=== PATIENT | male | born 1945 | race Caucasian/White ===

== ENCOUNTER → 2016-08-28 | Outpatient (CLI) | payer MEDICARE ==
[2016-08-28 11:35] LABS: Cholesterol 107 mg/dL (<200); HDL Cholesterol 41 mg/dL (40-60); Triglycerides 96 mg/dL (<150)
== END ==
LOC: LABWHC1 10:03
PROVIDERS: ATTEND Internal Medicine Cardiovascular Disease
DX: E78.00 Pure hypercholesterolemia, unspecified (principal); I48.0 Paroxysmal atrial fibrillation
CPT/HCPCS: 36415; 80061

== ENCOUNTER 2017-01-16 05:24 | Emergency (ER) | payer MEDICARE ==
[2017-01-16] MEDS ORDERED: MECLIZINE 12.5 MG TAB PO STA (05:50)
[2017-01-16] MEDS ORDERED: SODIUM CHLORIDE 0.9% 500 ML IV STA (05:50)
--- NOTE | 2017-01-16 05:53 | ED ---
Dizziness HPI - General Chief Complaint: Dizziness Stated Complaint: N/V, Vertigo Time Seen by Provider: 01/16/17 05:33 Source: patient Mode of arrival: EMS Limitations: no limitations - History of Present Illness MD Complaint: dizziness Onset/Timin -: hour(s) Timing: sudden onset, awoke with symptoms Description: "room spinning", nausea History of Same: No History of Trauma: No Severity: severe Improves With: remaining still Worsens With: movement - Related Data Home Medications Medication Instructions Recorded Confirmed Cholecalciferol [Vitamin D3] 2,000 unit PO DAILY@1200 11/08/13 12/11/13 Doxazosin [Cardura] 8 mg PO HS 11/08/13 12/11/13 Ezetimibe [Zetia] 10 mg PO DAILY 11/08/13 12/11/13 Famotidine [Pepcid] 20 mg PO BID 11/08/13 12/11/13 Probenecid [Benemid] 500 mg PO BID 11/08/13 12/11/13 Previous Rx's Medication Instructions Recorded Aspirin 325 mg PO DAILY #30 tab 11/09/13 Clopidogrel [Plavix] 75 mg PO DAILY #30 tab 11/09/13 Nitroglycerin Sl Tabs [Nitrostat] 0.4 mg SUBLINGUAL Q5M PRN #25 tab 11/09/13 Meclizine [Antivert] 25 mg PO TID PRN #20 tab 01/16/17 Allergies Allergy/AdvReac Type Severity Reaction Status Date / Time morphine AdvReac Nausea Verified 11/08/13 20:19 Review of Systems ROS Statement: Those systems with pertinent positive or pertinent negative responses have been documented in the HPI. ROS Other: All systems not noted in ROS Statement are negative. Constitutional: Denies: fever, chills, weakness Eyes: Denies: vision change ENT: Denies: ear pain, hearing loss Respiratory: Denies: cough, dyspnea Cardiovascular: Denies: chest pain, palpitations Gastrointestinal: Reports: nausea, vomiting. Denies: abdominal pain Genitourinary: Denies: dysuria, hematuria Musculoskeletal: Denies: back pain Skin: Denies: rash Neurological: Reports: as per HPI, vertigo. Denies: headache, weakness, numbness Past Medical History Past Medical History: Coronary Artery Disease (CAD), Chest Pain / Angina, GERD/ Reflux, Hyperlipidemia, Prostate Disorder Additional Past Medical History / Comment(s): BRADYCARDIA, GOUT, GALLSTONES, diverticulitis, stent placed October 2013 History of Any Multi-Drug Resistant Organisms: None Reported Past Surgical History: Heart Catheterization With Stent, Tonsillectomy Additional Past Surgical History / Comment(s): BOWEL RESECTION D/T DIVERTICULITIS,STENT TO RCA Past Anesthesia/Blood Transfusion Reactions: No Reported Reaction Date of Last Stent Placement:: 11-08-13 Past Psychological History: No Psychological Hx Reported Smoking Status: Former smoker Past Alcohol Use History: Occasional Past Drug Use History: None Reported General Exam Limitations: no limitations General appearance: alert, in no apparent distress Head exam: Present: atraumatic, normocephalic, normal inspection Eye exam: Present: normal appearance. Absent: scleral icterus, conjunctival injection ENT exam: Present: normal oropharynx, mucous membranes moist Neck exam: Present: normal inspection, full ROM Respiratory exam: Present: normal lung sounds bilaterally. Absent: respiratory distress, wheezes, rales, rhonchi, stridor Cardiovascular Exam: Present: regular rate, normal rhythm, normal heart sounds. Absent: systolic murmur, diastolic murmur, rubs, gallop GI/Abdominal exam: Present: soft. Absent: distended, tenderness, guarding, rebound, mass Extremities exam: Present: normal inspection, normal capillary refill. Absent: pedal edema, calf tenderness Back exam: Present: normal inspection. Absent: CVA tenderness (R), CVA tenderness (L) Neurological exam: Present: alert, oriented X3. Absent: motor sensory deficit Skin exam: Present: warm, dry, intact, normal color. Absent: rash Course Vital Signs 01/16/17 01/16/17 01/16/17 05:28 06:12 06:55 Temperature 96.8 F L Pulse Rate 60 64 60 Respiratory 18 94 H 18 Rate Blood Pressure 125/74 128/72 125/71 O2 Sat by Pulse 94 L 94 L 98 Oximetry 01/16/17 07:57 Temperature Pulse Rate 59 L Respiratory 18 Rate Blood Pressure 124/73 O2 Sat by Pulse 95 Oximetry Medical Decision Making - Lab Data Result diagrams: 01/16/17 05:44 01/16/17 05:44 Lab Results 01/16/17 01/16/17 01/16/17 Range/Units 05:44 05:44 05:44 WBC 8.8 (3.8-10.6) k/uL RBC 4.72 (4.30-5.90) m/uL Hgb 14.4 (13.0-17.5) gm/dL Hct 41.6 (39.0-53.0) % MCV 88.0 (80.0-100.0) fL MCH 30.5 (25.0-35.0) pg MCHC 34.7 (31.0-37.0) g/dL RDW 12.9 (11.5-15.5) % Plt Count 173 (150-450) k/uL Neutrophils % 80 % Lymphocytes % 10 % Monocytes % 7 % Eosinophils % 2 % Basophils % 0 % Neutrophils # 7.0 (1.3-7.7) k/uL Lymphocytes # 0.9 L (1.0-4.8) k/uL Monocytes # 0.6 (0-1.0) k/uL Eosinophils # 0.2 (0-0.7) k/uL Basophils # 0.0 (0-0.2) k/uL Sodium 140 (137-145) mmol/L Potassium 4.2 (3.5-5.1) mmol/L Chloride 107 (98-107) mmol/L Carbon Dioxide 27 (22-30) mmol/L Anion Gap 6 mmol/L BUN 25 H (9-20) mg/dL Creatinine 1.06 (0.66-1.25) mg/dL Est GFR (MDRD) Af Amer >60 (>60 ml/min/1.73 sqM) Est GFR (MDRD) Non-Af >60 (>60 ml/min/1.73 sqM) Glucose 130 H (74-99) mg/dL Plasma Lactic Acid Curtis (0.7-2.0) mmol/L Calcium 8.4 (8.4-10.2) mg/dL Total Bilirubin 0.3 (0.2-1.3) mg/dL AST 27 (17-59) U/L ALT 38 (21-72) U/L Alkaline Phosphatase 59 (38-126) U/L Troponin I <0.012 (0.000-0.034) ng/mL Total Protein 5.9 L (6.3-8.2) g/dL Albumin 3.5 (3.5-5.0) g/dL Urine Color Urine Appearance (Clear) Urine pH (5.0-8.0) Ur Specific [place] (1.001-1.035) Urine Protein (Negative) Urine Glucose (UA) (Negative) Urine Ketones (Negative) Urine Blood (Negative) Urine Nitrite (Negative) Urine Bilirubin (Negative) Urine Urobilinogen (<2.0) mg/dL Ur Leukocyte Esterase (Negative) 01/16/17 01/16/17 Range/Units 05:55 07:38 WBC (3.8-10.6) k/uL RBC (4.30-5.90) m/uL Hgb (13.0-17.5) gm/dL Hct (39.0-53.0) % MCV (80.0-100.0) fL MCH (25.0-35.0) pg MCHC (31.0-37.0) g/dL RDW (11.5-15.5) % Plt Count (150-450) k/uL Neutrophils % % Lymphocytes % % Monocytes % % Eosinophils % % Basophils % % Neutrophils # (1.3-7.7) k/uL Lymphocytes # (1.0-4.8) k/uL Monocytes # (0-1.0) k/uL Eosinophils # (0-0.7) k/uL Basophils # (0-0.2) k/uL Sodium (137-145) mmol/L Potassium (3.5-5.1) mmol/L Chloride (98-107) mmol/L Carbon Dioxide (22-30) mmol/L Anion Gap mmol/L BUN (9-20) mg/dL Creatinine (0.66-1.25) mg/dL Est GFR (MDRD) Af Amer (>60 ml/min/1.73 sqM) Est GFR (MDRD) Non-Af (>60 ml/min/1.73 sqM) Glucose (74-99) mg/dL Plasma Lactic Acid Curtis 1.4 (0.7-2.0) mmol/L Calcium (8.4-10.2) mg/dL Total Bilirubin (0.2-1.3) mg/dL AST (17-59) U/L ALT (21-72) U/L Alkaline Phosphatase (38-126) U/L Troponin I (0.000-0.034) ng/mL Total Protein (6.3-8.2) g/dL Albumin (3.5-5.0) g/dL Urine Color Yellow Urine Appearance Clear (Clear) Urine pH 5.0 (5.0-8.0) Ur Specific [place] 1.015 (1.001-1.035) Urine Protein Negative (Negative) Urine Glucose (UA) Negative (Negative) Urine Ketones Negative (Negative) Urine Blood Negative (Negative) Urine Nitrite Negative (Negative) Urine Bilirubin Negative (Negative) Urine Urobilinogen <2.0 (<2.0) mg/dL Ur Leukocyte Esterase Negative (Negative) Disposition Clinical Impression: Vertigo Disposition: HOME SELF-CARE Condition: Good Instructions: Vertigo (ED) Prescriptions: Meclizine [Antivert] 25 mg PO TID PRN #20 tab PRN Reason: Vertigo Referrals: Johnathan Sierra MD [Primary Care Provider] - 1-2 days
[2017-01-16 05:59] LABS: Basophils % (A) 0 %; CH 30.1; CHCM 34.4; Eosinophils # (A) 0.2 k/uL (0-0.7); Eosinophils % (A) 2 %; HCT 41.6 % (39.0-53.0); HGB 14.4 gm/dL (13.0-17.5); Luc # (Auto) 0.12; Luc % (Auto) 1; Lymphocytes # (A) 0.9 k/uL (1.0-4.8); Lymphocytes % (A) 10 %; MCH 30.5 pg (25.0-35.0); MCHC 34.7 g/dL (31.0-37.0); Mean Platelet Volume 8.4; Monocytes # (A) 0.6 k/uL (0-1.0); Monocytes % (A) 7 %; Neutrophils % (A) 80 %; RBC 4.72 m/uL (4.30-5.90); RDW 12.9 % (11.5-15.5); WBC 8.8 k/uL (3.8-10.6); WBC (Perox) 9.21
[2017-01-16 06:11] LABS: ALT 38 U/L (21-72); AST 27 U/L (17-59); Alkaline Phosphatase 59 U/L (38-126); Anion Gap 6 mmol/L; Blood Urea Nitrogen 25 mg/dL (9-20); Calcium 8.4 mg/dL (8.4-10.2); Carbon Dioxide 27 mmol/L (22-30); Chloride 107 mmol/L (98-107); Glucose 130 mg/dL (74-99); Non-African American GFR(MDRD) >60 (>60 ml/min/1.73 sqM); Potassium 4.2 mmol/L (3.5-5.1); Sodium 140 mmol/L (137-145); Total Bilirubin 0.3 mg/dL (0.2-1.3); Total Protein 5.9 g/dL (6.3-8.2)
[2017-01-16 06:56] VITALS: RESP 18
[2017-01-16 07:51] LABS: Appearance,Urine Clear (Clear); Bilirubin,Urine Negative (Negative); Glucose,Urine (UA) Negative (Negative); Ketones,Urine Negative (Negative); Leukocyte Esterase,Urine Negative (Negative); Nitrite,Urine Negative (Negative); Protein,Urine Negative (Negative); Specific Gravity,Urine 1.015 (1.001-1.035); UA Billing (MACRO vs. MICRO) CHEM; Urobilinogen,Urine <2.0 mg/dL (<2.0)
[2017-01-16 08:29] VITALS: BP 122/88; PULSE 60; TEMP 97.5
== END 2017-01-16 08:29 | disposition home or self-care (01) ==
LOC: EC 05:24
DX: R42 Dizziness and giddiness (principal); R11.0 Nausea; K21.9 Gastro-esophageal reflux disease without esophagitis; E78.5 Hyperlipidemia, unspecified; I25.10 Atherosclerotic heart disease of native coronary artery without angina pectoris; M10.9 Gout, unspecified; Z95.5 Presence of coronary angioplasty implant and graft; Z79.899 Other long term (current) drug therapy; Z87.891 Personal history of nicotine dependence
CPT/HCPCS: 36415; 80053; 81003; 83605; 84484; 85025; 93005; 99284

== ENCOUNTER → 2018-01-19 | Outpatient (CLI) | payer MEDICARE ==
--- NOTE | 2018-01-19 15:57 | CT ---
EXAMINATION TYPE: CT abdomen w con DATE OF EXAM: 01/19/2018 COMPARISON: None HISTORY: Right upper quadrant abdominal pain x few months. CT DLP: 738 mGycm, Automated Exposure Control for Dose Reduction was Utilized. CONTRAST: CT scan of the abdomen is performed with oral and with IV Contrast, patient injected with 100ml mL of Isovue M300. FINDINGS: LUNG BASES: Dependent atelectasis is seen in both bases. There is respiratory motion artifact degrada tion identified. There is partial visualization of right-sided pacemaker leads. LIVER/GB: Cholecystectomy clips are noted. There is no suspicious extrahepatic or intrahepatic biliar y dilatation. PANCREAS: No significant abnormality is seen. SPLEEN: There is 1.1 cm splenule in the inferior splenic hilum axial image 26 ADRENALS: No significant abnormality is seen. KIDNEYS: No significant abnormality is seen. BOWEL: The oral contrast does not reach colonic level making evaluation slightly suboptimal. There ar e sutures from right-sided partial colectomy seen. There is no suspicious small or large bowel dilata tion. LYMPH NODES: No greater than 1cm abdominal lymph nodes are appreciated. OSSEOUS STRUCTURES: There is advanced disc space narrowing with vacuum disc phenomenon and moderate a nterior spurring L4-L5 level. There is mild to moderate disc space narrowing with vacuum disc phenome non at L5-S1 level. There is facet arthropathy in the lower lumbar spine. OTHER: There is mild calcified plaque of the infrarenal abdominal aorta. IMPRESSION: No significant acute finding is seen to account for patient's clinical symptoms of right upper quadrant pain.
== END | disposition home or self-care (01) ==
LOC: RADCTMAIN 14:45
DX: R10.11 Right upper quadrant pain (principal)
CPT/HCPCS: 82565; 84520; 74160; 36415; Q9967

== ENCOUNTER 2018-06-22 09:25 | Day surgery (SDC) | payer MEDICARE ==
[2018-06-21 11:21] VITALS: BMI 25.7
[2018-06-22 09:42] VITALS: TEMP 97.5
[2018-06-22] MEDS ORDERED: LACTATED RINGERS 1,000 ML IV ONE (09:54)
[2018-06-22] MEDS ORDERED: LIDOCAINE 1% 20 ML VIAL (10MG/ML) FOR IV START INTRADERMA ONE (09:54)
[2018-06-22] MEDS ORDERED: LABETALOL SYRINGE 5 MG/ML IVP ONE (10:19)
[2018-06-22] MEDS ORDERED: PROPOFOL 10 MG/ML 20 ML VIAL IV ONE (11:04)
[2018-06-22] MEDS ORDERED: LIDOCAINE 1% INJ 10MG/ML (20 ML MDV) ONE (11:04)
--- NOTE | 2018-06-22 11:39 | P.PCN ---
Date of Procedure: 06/22/18 Procedure(s) Performed: Procedures: 1. Esophagogastroduodenoscopy and biopsy. 2. Total colonoscopy. Preoperative diagnosis: Anemia and positive cologuard test. Postoperative diagnosis: 1. Small sliding hiatal hernia with no obvious esophagitis or complicated reflux disease. 2. Mild antral gastritis. 3. Multiple biopsies obtained from the duodenum, antrum and esophagus. 4. Colonoscopy within normal limits. Preparation: HalfLytely prep. Sedation: Was provided by anesthesia. Brief clinical history: The patient is a 73-year-old male who is scheduled for this evaluation for the above reason. He has history of complicated diverticular disease and required segmental resection in the early 1999. He had a normal colonoscopy in September 2015 and an upper endoscopy around that time showed LA grade A reflux esophagitis and mild antral gastritis and a small GE junction polyp that showed eosinophilic esophagitis on biopsy. This evaluation is to assess for a possible source of bleeding. Procedure: With the patient on his left lateral decubitus position and after informed consent and adequate sedation, I passed the Olympus-GIF H1 90 video upper endoscope through the cricopharyngeus down the esophagus. The esophagus appeared normal and there was a small sliding hiatal hernia but no obvious esophagitis or complicated reflux disease. GE junction was around 42-43 cm from the incisors. The endoscope was then passed into the stomach which was insufflated with air and inspected in detail including the retroflex view in the cardia. There was some mottling and erythema in the antrum but no ulcers or erosions. Pyloric channel, duodenal bulb, post bulbar area and descending duodenum appeared within normal limits. I obtained biopsies from the duodenum, antrum and esophagus then the endoscope was withdrawn and I proceeded with the colonoscopy. Perianal area did not show any fissures or fistulas. There were no masses felt on digital rectal examination. The Olympus CFH 190L video colonoscope was then inserted in the rectum in the usual fashion and advanced to the cecum. There was a rare small diverticular orifice seen in the sigmoid and the mucosa appeared healthy. No polyps or tumors were seen. No potential sources of bleeding. I retroflexed the endoscope in the rectum before the endoscope was withdrawn. The patient tolerated the procedure well. Plan: The patient was reassured. Will await biopsy results. Consideration can be given for a small bowel capsule endoscopy depending on his course and if he continues to have anemia and evidence of GI blood loss. He will follow up with you as planned.
[2018-06-22 12:16] VITALS: BP 106/66; PULSE 65; RESP 18
== END 2018-06-22 12:53 | disposition home or self-care (01) ==
LOC: ORWHC2ENDO 09:25
DX: K20.0 Eosinophilic esophagitis (principal); K44.9 Diaphragmatic hernia without obstruction or gangrene; K21.9 Gastro-esophageal reflux disease without esophagitis; K57.30 Diverticulosis of large intestine without perforation or abscess without bleeding; K29.50 Unspecified chronic gastritis without bleeding; Z90.49 Acquired absence of other specified parts of digestive tract; D64.9 Anemia, unspecified; I25.10 Atherosclerotic heart disease of native coronary artery without angina pectoris; I10 Essential (primary) hypertension; M10.9 Gout, unspecified; Z95.0 Presence of cardiac pacemaker; Z87.891 Personal history of nicotine dependence; Z95.5 Presence of coronary angioplasty implant and graft; Z79.01 Long term (current) use of anticoagulants; Z79.82 Long term (current) use of aspirin; Z79.899 Other long term (current) drug therapy; Z88.5 Allergy status to narcotic agent
CPT/HCPCS: 88305; 45378; 43239; J2001; J2704

== ENCOUNTER 2018-07-23 10:23 | Observation (INO) | payer MEDICARE ==
[2018-07-23] MEDS ORDERED: HYDROmorphone 0.5 MG/0.5 ML SYRINGE IVP STA (10:38)
[2018-07-23] MEDS ORDERED: KETOROLAC 30 MG/ML 1 ML VIAL IVP STA (10:38)
[2018-07-23] MEDS ORDERED: NITROGLYCERIN OINT 1 INCH/GM PACKET TOPICAL STA (10:58)
[2018-07-23] MEDS ORDERED: ASPIRIN 81 MG PO STA (10:58)
--- NOTE | 2018-07-23 11:00 | ED ---
General Adult HPI - General Chief complaint: Chest Pain Stated complaint: CHEST PAIN Time Seen by Provider: 07/23/18 10:25 Source: patient, RN notes reviewed Mode of arrival: ambulatory Limitations: no limitations - History of Present Illness Initial comments: This is a 73-year-old male who presents emergency department with past medical history significant for a coronary stent high cholesterol and diabetes. Patient comes in today because he experienced a sharp chest pain across his chest that lasts 1 second last evening however since then he's had chest discomfort across his whole chest lasting quite a bit longer it does radiated up to his jaw. Patient denies any diaphoresis. Patient denies any nausea. Patient denies any palpitations. Patient denies shortness of breath or difficulty breathing. Patient denies abdominal pain patient denies vomiting or diarrhea. Patient denies any recent fevers chills or cough. - Related Data Home Medications Medication Instructions Recorded Confirmed Cholecalciferol [Vitamin D3] 2,000 unit PO DAILY 11/08/13 07/23/18 Ezetimibe [Zetia] 10 mg PO DAILY 11/08/13 07/23/18 Amiodarone HCl [Pacerone] 200 mg PO DAILY 06/21/18 07/23/18 Aspirin 81 mg PO DAILY 06/21/18 07/23/18 Rivaroxaban [Xarelto] 20 mg PO DAILY 06/21/18 07/23/18 Alirocumab [Praluent Pen] 75 mg SQ DIRECTED 07/23/18 07/23/18 Mupirocin [Mupirocin 2%] 1 applic TOPICAL TID 07/23/18 07/23/18 Probenecid [Benemid] 500 mg PO BID 07/23/18 07/23/18 Tadalafil [Cialis] 5 mg PO ONCE 07/23/18 07/23/18 rOPINIRole HCL 0.5 mg PO HS 07/23/18 07/23/18 Previous Rx's Medication Instructions Recorded Nitroglycerin Sl Tabs [Nitrostat] 0.4 mg SUBLINGUAL Q5M PRN #25 tab 11/09/13 Allergies Allergy/AdvReac Type Severity Reaction Status Date / Time morphine AdvReac Nausea,room Verified 07/23/18 12:36 spins Review of Systems ROS Statement: Those systems with pertinent positive or pertinent negative responses have been documented in the HPI. ROS Other: All systems not noted in ROS Statement are negative. Past Medical History Past Medical History: Coronary Artery Disease (CAD), Chest Pain / Angina, GERD/ Reflux, Hyperlipidemia, Prostate Disorder Additional Past Medical History / Comment(s): positive cologuard test, BRADYCARDIA, GOUT, GALLSTONES, diverticulitis,steroids May 2018,prostatitis History of Any Multi-Drug Resistant Organisms: None Reported Past Surgical History: Bowel Resection, Heart Catheterization With Stent, Pacemaker, Tonsillectomy Additional Past Surgical History / Comment(s): BOWEL RESECTION D/T DIVERTICULITIS,STENT TO RCA Past Anesthesia/Blood Transfusion Reactions: No Reported Reaction Date of Last Stent Placement:: 11-08-13 Type of Cardiac Device: Permanent Pacemaker Device Placement Date:: 2013? Past Psychological History: No Psychological Hx Reported Smoking Status: Former smoker Past Alcohol Use History: None Reported, Daily Past Drug Use History: None Reported - Past Family History Father Additional Family Medical History / Comment(s): at age 89 General Exam - General Exam Comments Initial Comments: GENERAL: Patient is well-developed and well-nourished. Patient is nontoxic and well- hydrated and is in mild distress. ENT: Neck is soft and supple. No significant lymphadenopathy is noted. Oropharynx is clear. Moist mucous membranes. Neck has full range of motion without eliciting any pain. EYES: The sclera were anicteric and conjunctiva were pink and moist. Extraocular movements were intact and pupils were equal round and reactive to light. Eyelids were unremarkable. PULMONARY: Unlabored respirations. Good breath sounds bilaterally. No audible rales rhonchi or wheezing was noted. CARDIOVASCULAR: There is a regular rate and rhythm without any murmurs gallops or rubs. ABDOMEN: Soft and nontender with normal bowel sounds. No palpable organomegaly was noted. There is no palpable pulsatile mass. SKIN: Skin is clear with no lesions or rashes and otherwise unremarkable. NEUROLOGIC: Patient is alert and oriented x3. Cranial nerves II through XII are grossly intact. Motor and sensory are also intact. Normal speech, volume and content. Symmetrical smile. MUSCULOSKELETAL: Normal extremities with adequate strength and full range of motion. No lower extremity swelling or edema. No calf tenderness. LYMPHATICS: No significant lymphadenopathy is noted PSYCHIATRIC: Normal psychiatric evaluation. Limitations: no limitations Course Vital Signs 07/23/18 10:26 Temperature 97.4 F L Pulse Rate 85 Respiratory 20 Rate Blood Pressure 119/79 O2 Sat by Pulse 97 Oximetry Medical Decision Making - Medical Decision Making EKG shows a paced rhythm at 69 bpm OR interval is 288 QRS is 90 QT interval 410 QTC is 439. Chest shows no acute normalities. Patient's hemoglobin was down but patient stated that he is no numbness had a colonoscopy 2 weeks ago and they did not find anything. Patient does not want a rectal exam at this time. I spoke with [facility] and he agreed to admit the patient admitted the patient I consult cardiology. I did not start any heparin on the patient because the patient stated that he did have blood in his stool recently. - Lab Data Result diagrams: 07/23/18 10:59 07/23/18 10:59 Lab Results 07/23/18 07/23/18 07/23/18 Range/Units 10:59 10:59 10:59 WBC 4.5 (3.8-10.6) k/uL RBC 4.58 (4.30-5.90) m/uL Hgb 9.6 L (13.0-17.5) gm/dL Hct 32.4 L (39.0-53.0) % MCV 70.8 L (80.0-100.0) fL MCH 20.9 L (25.0-35.0) pg MCHC 29.5 L (31.0-37.0) g/dL RDW 17.6 H (11.5-15.5) % Plt Count 221 (150-450) k/uL Neutrophils % 58 % Lymphocytes % 23 % Monocytes % 10 % Eosinophils % 5 % Basophils % 1 % Neutrophils # 2.6 (1.3-7.7) k/uL Lymphocytes # 1.0 (1.0-4.8) k/uL Monocytes # 0.4 (0-1.0) k/uL Eosinophils # 0.2 (0-0.7) k/uL Basophils # 0.0 (0-0.2) k/uL Hypochromasia Marked Poikilocytosis Slight Anisocytosis Slight Microcytosis Marked PT 10.6 (9.0-12.0) sec INR 1.0 (<1.2) APTT 26.0 (22.0-30.0) sec Sodium 138 (137-145) mmol/L Potassium 4.7 (3.5-5.1) mmol/L Chloride 107 (98-107) mmol/L Carbon Dioxide 28 (22-30) mmol/L Anion Gap 3 mmol/L BUN 17 (9-20) mg/dL Creatinine 1.17 (0.66-1.25) mg/dL Est GFR (CKD-EPI)AfAm 72 (>60 ml/min/1.73 sqM) Est GFR (CKD-EPI)NonAf 62 (>60 ml/min/1.73 sqM) Glucose 111 H (74-99) mg/dL Calcium 9.0 (8.4-10.2) mg/dL Magnesium 2.2 (1.6-2.3) mg/dL Total Bilirubin 0.4 (0.2-1.3) mg/dL AST 38 (17-59) U/L ALT 50 (21-72) U/L Alkaline Phosphatase 61 (38-126) U/L Troponin I (0.000-0.034) ng/mL Total Protein 6.4 (6.3-8.2) g/dL Albumin 3.8 (3.5-5.0) g/dL 07/23/18 Range/Units 10:59 WBC (3.8-10.6) k/uL RBC (4.30-5.90) m/uL Hgb (13.0-17.5) gm/dL Hct (39.0-53.0) % MCV (80.0-100.0) fL MCH (25.0-35.0) pg MCHC (31.0-37.0) g/dL RDW (11.5-15.5) % Plt Count (150-450) k/uL Neutrophils % % Lymphocytes % % Monocytes % % Eosinophils % % Basophils % % Neutrophils # (1.3-7.7) k/uL Lymphocytes # (1.0-4.8) k/uL Monocytes # (0-1.0) k/uL Eosinophils # (0-0.7) k/uL Basophils # (0-0.2) k/uL Hypochromasia Poikilocytosis Anisocytosis Microcytosis PT (9.0-12.0) sec INR (<1.2) APTT (22.0-30.0) sec Sodium (137-145) mmol/L Potassium (3.5-5.1) mmol/L Chloride (98-107) mmol/L Carbon Dioxide (22-30) mmol/L Anion Gap mmol/L BUN (9-20) mg/dL Creatinine (0.66-1.25) mg/dL Est GFR (CKD-EPI)AfAm (>60 ml/min/1.73 sqM) Est GFR (CKD-EPI)NonAf (>60 ml/min/1.73 sqM) Glucose (74-99) mg/dL Calcium (8.4-10.2) mg/dL Magnesium (1.6-2.3) mg/dL Total Bilirubin (0.2-1.3) mg/dL AST (17-59) U/L ALT (21-72) U/L Alkaline Phosphatase (38-126) U/L Troponin I <0.012 (0.000-0.034) ng/mL Total Protein (6.3-8.2) g/dL Albumin (3.5-5.0) g/dL Disposition Clinical Impression: Chest pain, Anemia Disposition: ADMITTED IP TO THIS [facility] Referrals: Johnathan Sierra MD [Primary Care Provider] - 1-2 days Time of Disposition: 12:58
[2018-07-23 11:10] LABS: Anisocytosis Slight; Basophils % (A) 1 %; Eosinophils # (A) 0.2 k/uL (0-0.7); Eosinophils % (A) 5 %; HCT 32.4 % (39.0-53.0); HGB 9.6 gm/dL (13.0-17.5); Hypochromasia Marked; Lymphocytes % (A) 23 %; MCH 20.9 pg (25.0-35.0); MCHC 29.5 g/dL (31.0-37.0); MCV 70.8 fL (80.0-100.0); Mean Platelet Volume 7.4; Microcytosis Marked; Monocytes # (A) 0.4 k/uL (0-1.0); Monocytes % (A) 10 %; Neutrophils # (A) 2.6 k/uL (1.3-7.7); Neutrophils % (A) 58 %; Platelet Count 221 k/uL (150-450); Poikilocytosis Slight; RBC 4.58 m/uL (4.30-5.90); RDW 17.6 % (11.5-15.5); WBC 4.5 k/uL (3.8-10.6)
[2018-07-23 11:20] LABS: Albumin 3.8 g/dL (3.5-5.0); Magnesium 2.2 mg/dL (1.6-2.3); Potassium 4.7 mmol/L (3.5-5.1); Total Bilirubin 0.4 mg/dL (0.2-1.3); Total Protein 6.4 g/dL (6.3-8.2)
[2018-07-23 11:30] LABS: Prothrombin Time 10.6 sec (9.0-12.0)
--- NOTE | 2018-07-23 11:43 | XR ---
EXAMINATION TYPE: XR chest 2V DATE OF EXAM: 07/23/2018 COMPARISON: 12/11/2013 INDICATION: Chest pain TECHNIQUE: Frontal and lateral views of the chest are obtained. FINDINGS: The heart size is normal. The pulmonary vasculature is normal. The lungs are clear. Electronic device overlies left chest. IMPRESSION: 1. No acute pulmonary process.
[2018-07-23] MEDS ORDERED: NITROGLYCERIN SL TABS 0.4 MG TAB SUBLINGUAL PRN (12:58)
[2018-07-23 14:35] VITALS: BMI 26.0
[2018-07-23 16:45] LABS: Glucose,Whole Blood 152 mg/dL (75-99)
[2018-07-23] MEDS: NITROGLYCERIN OINT 1 INCH/GM PACKET TOPICAL SCH (16:53)
[2018-07-23] MEDS: INSULIN ASPART (NovoLOG) 100 UNIT/ML VIAL SQ SCH ×2 (16:57→20:08)
[2018-07-23] MEDS ORDERED: TEMAZEPAM 15 MG CAP PO PRN (17:20)
[2018-07-23] MEDS ORDERED: ACETAMINOPHEN TAB 500 MG TAB PO PRN (17:20)
[2018-07-23] MEDS ORDERED: ALPRAZolam 0.25 MG TAB PO PRN (17:20)
[2018-07-23] MEDS ORDERED: ALIROCUMAB 75 MG SQ SCH (17:30)
[2018-07-23 20:05] LABS: Glucose,Whole Blood 113 mg/dL (75-99)
[2018-07-23] MEDS: PROBENECID 500 MG TAB PO SCH (21:50)
[2018-07-23] MEDS: MUPIROCIN 2% OINT 22 GM TUBE TOPICAL SCH (22:57)
[2018-07-24] MEDS: NITROGLYCERIN OINT 1 INCH/GM PACKET TOPICAL SCH ×2 (00:05→06:05)
[2018-07-24 00:46] LABS: Hemoglobin A1C 6.4 % (4.0-6.0)
--- NOTE | 2018-07-24 04:40 | HP ---
HISTORY AND PHYSICAL DATE OF SERVICE: 07/23/2018 CHIEF COMPLAINT: Chest pain. HISTORY OF PRESENT ILLNESS: This 73-year-old gentleman with a past medical history of multiple medical problems including history of CAD, history of GERD, hyperlipidemia, history of DJD, history of prostate disorder, history of anemia, history of stool OB positive, hiatal hernia, history of CAD and stent being followed by Dr. 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 Patient woke up last night with chest pain which is in the anterior part of the chest, rather sharp in character. This morning also patient had aching type of pain and some pain radiating up the joint. Patient came to [facility] and was admitted for further evaluation and treatment. There was no nausea, any sweating, palpitation, headache. loss of conscious. Patient's pain is reported as cramps. The patient had recently had echocardiogram elsewhere according to the patient. There is no history of any fever, rigor, chills. PAST MEDICAL HISTORY: History of CAD, history of GERD, hyperlipidemia, history of DJD, prostate disorder and anemia. MEDICATIONS ARE: 1. Requip 0.5 mg q.h.s. 2. Xarelto 20 mg daily. 3. 500 mg p.o. b.i.d. 4. Nitrostat 0.4. 5. Vitamin D3 2000. 6. Aspirin 81 mg. 7. Alirocumab 75 mg p.o. 9. Zetia 10 mg. 10.Cialis 5 mg. 11.Pacerone 200 mg daily. ALLERGIES: MORPHINE. FAMILY HISTORY: History of lung cancer in the family. SOCIAL HISTORY: History of occasional alcohol. Previous history of smoking. REVIEW OF SYSTEMS: ENT No history of diminished hearing or vision. CARDIOVASCULAR As mentioned earlier. RESPIRATORY As mentioned earlier. GI No nausea, vomiting, or diarrhea. No dysuria. NERVOUS No numbness or weakness. ALLERGY/IMMUNOLOGY No asthma or hayfever. MUSCULOSKELETAL As mentioned earlier. HEMATOLOGY/ONCOLOGY Negative. ENDOCRINE No history of diabetes or hypothyroidism. CONSTITUTIONAL As mentioned earlier. PSYCH As mentioned earlier. PHYSICAL EXAMINATION: Alert, oriented x3. Pulse 64, blood pressure 130/60, respiration temperature 97.7, pulse ox 97% on room air. HEENT Conjunctivae normal. NECK No jugular venous distention. CARDIAC S1, S2 muffled. RESPIRATORY Diminished breath sounds at the bases. No rhonchi, no crackles. ABDOMEN Soft, nontender. No mass palpable. LEGS No edema. No swelling. NERVOUS SYSTEM Higher functions as mentioned earlier. Moves all four limbs. LYMPHATICS No lymph node in the neck or axilla. SKIN No rash. JOINT ( ) active. LABS: WBC 4, hemoglobin 9.6 and MCV 70.8. Accu-Cheks 152. ASSESSMENT: 1. Chest pain, possible unstable angina. 2. Anemia, microcytic, rule out gastrointestinal bleed. 3. History of coronary artery disease and stent. 4. History of chest pain. 5. History of gastroesophageal reflux disease. 6. Hyperlipidemia. 7. History of degenerative joint disease. 8. History of prostate disorder. 9. History of stool positive guaiac positive blood. 10.History of gastritis. 11.History of hiatal hernia. 12.History of gout. 13.History of degenerative joint disease. 14.Remote history of nicotine dependence. RECOMMENDATIONS AND DISCUSSION: In this 73-year-old gentleman who presented with multiple medical issues, we will monitor the patient closely, continue the current management and symptomatic treatment. I recommend cardiology consult, rule out myocardial infarction. Resume the home medications. Repeat labs in the morning. We will follow the patient closely and further recommendations to follow. MMODL / IJN: [id number] / EFRA
[2018-07-24 05:59] LABS: Anisocytosis Slight; Basophils % (A) 1 %; Eosinophils # (A) 0.2 k/uL (0-0.7); Eosinophils % (A) 5 %; HCT 31.7 % (39.0-53.0); HGB 9.1 gm/dL (13.0-17.5); Hypochromasia Marked; Lymphocytes # (A) 1.2 k/uL (1.0-4.8); Lymphocytes % (A) 25 %; MCH 20.7 pg (25.0-35.0); MCHC 28.6 g/dL (31.0-37.0); MCV 72.3 fL (80.0-100.0); Mean Platelet Volume 9.1; Microcytosis Moderate; Monocytes # (A) 0.4 k/uL (0-1.0); Monocytes % (A) 9 %; Neutrophils # (A) 2.6 k/uL (1.3-7.7); Neutrophils % (A) 56 %; Platelet Count 201 k/uL (150-450); RBC 4.38 m/uL (4.30-5.90); RDW 17.8 % (11.5-15.5); WBC 4.7 k/uL (3.8-10.6)
[2018-07-24 06:10] LABS: Calcium 8.6 mg/dL (8.4-10.2); Potassium 4.9 mmol/L (3.5-5.1)
[2018-07-24 06:56] LABS: Glucose,Whole Blood 115 mg/dL (75-99)
[2018-07-24] MEDS: INSULIN ASPART (NovoLOG) 100 UNIT/ML VIAL SQ SCH (07:06)
[2018-07-24] MEDS ORDERED: PANTOPRAZOLE 40 MG TABLET PO SCH (07:30)
[2018-07-24 07:35] VITALS: BP 102/52; PULSE 62; RESP 18; TEMP 97.6
[2018-07-24] MEDS ORDERED: RIVAROXABAN 20 MG TAB PO SCH (09:00)
[2018-07-24] MEDS ORDERED: ASPIRIN 325 MG TAB PO SCH (09:00)
[2018-07-24] MEDS ORDERED: EZETIMIBE 10 MG TAB PO SCH (09:00)
[2018-07-24] MEDS ORDERED: AMIODARONE 200 MG TAB PO SCH (09:00)
[2018-07-24] MEDS ORDERED: CHOLECALCIFEROL 1,000 UNIT TAB PO SCH (09:00)
[2018-07-24] MEDS: MUPIROCIN 2% OINT 22 GM TUBE TOPICAL SCH (10:09)
[2018-07-24] MEDS: PROBENECID 500 MG TAB PO SCH (10:14)
--- NOTE | 2018-07-24 12:53 | CONS ---
CONSULTATION Mr. Juares this is a also well is a 73-year-old gentleman who is seen for the cardiac evaluations. Patient's medical records reviewed. This patient has a known history of coronary artery disease with a prior history of a stent to the distal right coronary artery. 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 Patient is being followed by custodial services manager in [place]. Patient came to the hospital with the sharp pain across the chest which lasted for initially a few seconds. Patient had a similar pain the night before. He did not had any nausea, vomiting, or shortness of breath. Patient denies any history of exertional chest discomfort. Patient recently had a colonoscopy done about 2 weeks ago. No source of bleeding was detected. HOME MEDICATIONS: Include vitamin D3, Zetia, Pacerone 200 mg daily, baby aspirin once a day, Xarelto 20 mg daily, Praluent, , Cialis and Requip. REVIEW OF THE SYSTEM: Otherwise unremarkable. PAST MEDICAL HISTORY: Includes test, gout, gallstones, diverticulitis and prostatitis and prior bowel resection with diverticulitis. SOCIAL HISTORY: Patient is a former smoker. PHYSICAL EXAMINATION: At present reveals a 73-year-old gentleman who does not appear to be in any acute distress. Patient's blood pressure is 130/80 mmHg. HEENT examination is negative. Neck is supple. There is no increase in jugular venous pressure. Both the carotid pulses are felt, there is no bruit. Chest is symmetrical. Heart, the PMI is not felt. First and second heart sounds are normal. Lungs are clinically clear to auscultation and percussion. Abdomen was soft. Liver and spleen are not enlarged. Bowel sounds are heard. Extremities, peripheral pulses are 2+. Patient's electrolytes are normal. Troponins are normal. EKG does not show any acute ischemic changes. FINAL IMPRESSION: Chest pain suggestive of atypical angina. Patient's EKGs and cardiac enzymes are normal. In view of the patient, we will recommend to obtain echocardiogram. Patient's aspirin can probably be discontinued and only continue on Xarelto and patient is advised to follow up with his custodial services manager and follow up with a stress test as outpatient. MMODL / IJN: [id number] /
--- NOTE | 2018-07-24 14:08 | DS ---
DISCHARGE SUMMARY DATE OF SERVICE: 07/24/2018 FINAL DIAGNOSES: 1. Chest pain, possible unstable angina. 2. Anemia, microcytic, rule out gastrointestinal bleed. 3. History of coronary artery disease, stent. 4. History of chest pain. 5. Gastroesophageal reflux disease. 6. Hyperlipidemia. 7. History of degenerative joint disease. 8. History of prostate disorder. 9. History of stool positive guaiac. 10.History of gastritis. 11.History of hiatal hernia. 12.History of gout. 13.History of degenerative joint disease. 14.Remote history of nicotine dependence. DISCHARGE DISPOSITION: The patient left the hospital AGAINST MEDICAL ADVICE. HISTORY OF PRESENT ILLNESS: This is a 73-year-old gentleman with a past medical history of multiple medical problems, was admitted with chest pain. Cardiology was evaluating the patient, but: however, the patient is not willing to stay and left the hospital AGAINST MEDICAL ADVICE. Prognosis extremely guarded. Please refer to Cardiology notes and staff notes for further details. MMODL / IJN: [id number] /
== END 2018-07-24 11:39 | disposition left against medical advice (07) ==
LOC: EC 10:23 → 1SOBS 12:58
PROVIDERS: ADMIT Hospitalist; ATTEND Hospitalist
DX: R07.89 Other chest pain (principal); D50.9 Iron deficiency anemia, unspecified; I25.10 Atherosclerotic heart disease of native coronary artery without angina pectoris; Z95.5 Presence of coronary angioplasty implant and graft; K21.9 Gastro-esophageal reflux disease without esophagitis; E78.5 Hyperlipidemia, unspecified; M19.90 Unspecified osteoarthritis, unspecified site; N42.9 Disorder of prostate, unspecified; Z87.19 Personal history of other diseases of the digestive system; K44.9 Diaphragmatic hernia without obstruction or gangrene; M10.9 Gout, unspecified; Z87.891 Personal history of nicotine dependence; Z53.21 Procedure and treatment not carried out due to patient leaving prior to being seen by health care provider; Z79.899 Other long term (current) drug therapy; Z79.82 Long term (current) use of aspirin; Z79.01 Long term (current) use of anticoagulants; Z88.5 Allergy status to narcotic agent; Z80.1 Family history of malignant neoplasm of trachea, bronchus and lung; I49.5 Sick sinus syndrome; Z95.0 Presence of cardiac pacemaker
CPT/HCPCS: 99285; 36415; 93005; 80061; 80053; 80048; 83735; 84484; 85025 ×2; 85610; 85730; 83036; 71046; G0378 ×2

== ENCOUNTER → 2019-11-15 | Day surgery (SDC) | payer MEDICARE ==
[2019-11-11 13:57] VITALS: BMI 25.0
[~2019-11-15] MED LIST: SIMETHICONE 40 MG/0.6 ML DROPS 2,000 MG/30 ML BOTTLE PO ONE
== END ==
LOC: ORWHC2ENDO 06:57
PROVIDERS: ATTEND Internal Medicine
DX: D50.9 Iron deficiency anemia, unspecified (principal); K92.2 Gastrointestinal hemorrhage, unspecified
CPT/HCPCS: 91110

== ENCOUNTER 2023-02-15 07:44 | Observation (INO) | payer MEDICARE ==
[2023-02-15 08:03] LABS: Anisocytosis Slight; Basophils % (A) 0 %; Eosinophils # (A) 0.3 k/uL (0-0.7); Eosinophils % (A) 5 %; HCT 31.8 % (39.0-53.0); Hypochromasia Slight; Lymphocytes # (A) 0.8 k/uL (1.0-4.8); Lymphocytes % (A) 13 %; MCH 26.6 pg (25.0-35.0); MCHC 31.5 g/dL (31.0-37.0); MCV 84.4 fL (80.0-100.0); Mean Platelet Volume 8.2; Monocytes # (A) 0.6 k/uL (0-1.0); Monocytes % (A) 10 %; Neutrophils # (A) 4.2 k/uL (1.3-7.7); Neutrophils % (A) 70 %; Platelet Count 166 k/uL (150-450); RBC 3.77 m/uL (4.30-5.90); RDW 16.9 % (11.5-15.5)
[2023-02-15 08:13] LABS: INR 1.3 (<1.2); Prothrombin Time 13.1 sec (9.0-12.0)
[2023-02-15 08:27] LABS: ALT 54 U/L (4-49); AST 98 U/L (17-59); African American GFR (CKD) >90 (>60 ml/min/1.73 sqM); Albumin 3.1 g/dL (3.5-5.0); Alkaline Phosphatase 128 U/L (38-126); Anion Gap 2 mmol/L; Blood Urea Nitrogen 26 mg/dL (9-20); Calcium 8.6 mg/dL (8.4-10.2); Carbon Dioxide 27 mmol/L (22-30); Chloride 107 mmol/L (98-107); Glucose 190 mg/dL (74-99); Non-African American GFR(CKD) 78 (>60 ml/min/1.73 sqM); Sodium 136 mmol/L (137-145); Total Bilirubin 0.4 mg/dL (0.2-1.3)
--- NOTE | 2023-02-15 08:28 | ED ---
General Adult HPI - General Chief complaint: Chest Pain Stated complaint: Chest Pain Time Seen by Provider: 02/15/23 07:53 Source: EMS Mode of arrival: EMS Limitations: no limitations - History of Present Illness Initial comments: Dictation was produced using [employer] dictation software. please excuse any grammatical, word or spelling errors. Chief Complaint: 77-year-old male with pacemaker and history of coronary disease presents to the ER for chest pain History of Present Illness: Patient 77-year-old male he has past medical history of coronary artery disease, pacemaker and A. fib. Presents to the ER for chest pain. Patient was at home when he started to have sharp chest pain that rated to his right jaw. This history of coronary artery disease status post coronary artery stent placements. Patient also has history of pacemaker those placed at [place] several years ago. Patient states the pain as sharp and worse with deep inspiration. EMS was called and EMS was worrisome that patient had a run of ventricular tachycardia. Patient took his own aspirin. He is given 2 nitro with maybe some improvement of his symptoms. The ROS documented in this emergency department record has been reviewed and confirmed by me. Those systems with pertinent positive or negative responses have been documented in the HPI. All other systems are other negative and/or noncontributory. - Related Data Home Medications Medication Instructions Recorded Confirmed Cholecalciferol [Vitamin D3 (25 2,000 unit PO DAILY 11/08/13 11/11/19 Mcg = 1000 Iu)] Ezetimibe [Zetia] 10 mg PO DAILY 11/08/13 11/11/19 Amiodarone HCl [Pacerone] 200 mg PO DAILY 06/21/18 11/11/19 Aspirin 81 mg PO DAILY 06/21/18 11/11/19 Rivaroxaban [Xarelto] 20 mg PO DAILY 06/21/18 11/11/19 Alirocumab [Praluent Pen] 75 mg SQ Q14D 07/23/18 11/11/19 Probenecid [Benemid] 500 mg PO BID 07/23/18 11/11/19 rOPINIRole HCL [Requip] 0.5 mg PO HS 07/23/18 11/11/19 tadalafiL [Cialis] 5 mg PO ONCE PRN 07/23/18 11/11/19 Ciprofloxacin HCl [Cipro] 500 mg PO Q12HR 11/11/19 11/11/19 Previous Rx's Medication Instructions Recorded Nitroglycerin Sl Tabs [Nitrostat] 0.4 mg SUBLINGUAL Q5M PRN #25 tab 11/09/13 Allergies Allergy/AdvReac Type Severity Reaction Status Date / Time morphine AdvReac Nausea,room Verified 02/15/23 07:53 spins Review of Systems ROS Statement: Those systems with pertinent positive or pertinent negative responses have been documented in the HPI. ROS Other: All systems not noted in ROS Statement are negative. Past Medical History Past Medical History: Atrial Fibrillation, Coronary Artery Disease (CAD), Chest Pain / Angina, GERD/Reflux, Hyperlipidemia, Osteoarthritis (OA), Prostate Disorder Additional Past Medical History / Comment(s): Anemia-recent positive Cologuard test and +stool OB-had EGD and colonoscopy which showed gastritis/hiatal hernia and a normal colon, past diverticulitis, NIDDM-diet controlled, bradycardia with pacemaker, BPH, chronic proctatitis,on antibiotics currently for that, gout, History of Any Multi-Drug Resistant Organisms: None Reported Past Surgical History: Bowel Resection, Heart Catheterization With Stent, Pacemaker, Tonsillectomy Additional Past Surgical History / Comment(s): EGDs, colonoscopies with last time for both being 06/22/18, BOWEL RESECTION D/T DIVERTICULITIS,STENT TO RCA Past Anesthesia/Blood Transfusion Reactions: No Reported Reaction Date of Last Stent Placement:: 11-08-13 Type of Cardiac Device: Permanent Pacemaker Device Placement Date:: 2013 Past Psychological History: No Psychological Hx Reported Smoking Status: Former smoker Past Alcohol Use History: Daily Past Drug Use History: None Reported - Past Family History Father Family Medical History: Cancer Additional Family Medical History / Comment(s): Father at age 89. He had lung issues and lung cancer. Mother Family Medical History: Myocardial Infarction (MA) Additional Family Medical History / Comment(s): Mother had a MA in her 60s. She lived to be 89yrs old. General Exam - General Exam Comments Initial Comments: PHYSICAL EXAM: General Impression: Alert and oriented x3, not in acute distress HEENT: Normocephalic atraumatic, extra-ocular movements intact, pupils equal and reactive to light bilaterally, mucous membranes moist. Cardiovascular: Heart regular rate and rhythm Chest: Able to complete full sentences, no retractions, no tachypnea Abdomen: abdomen soft, non-tender, non-distended, no organomegaly Musculoskeletal: Pulses present and equal in all extremities, no peripheral edema Motor: no focal deficits noted Neurological: CN II-XII grossly intact, no focal motor or sensory deficits noted Skin: Intact with no visualized rashes Psych: Normal affect and mood Limitations: no limitations Course Vital Signs 02/15/23 02/15/23 02/15/23 07:46 08:00 09:00 Temperature 97.8 F Pulse Rate 70 61 60 Respiratory 16 16 16 Rate Blood Pressure 117/78 121/69 111/68 O2 Sat by Pulse 95 96 99 Oximetry - Reevaluation(s) Reevaluation #1: 02/15/23 08:27 Patient Accepted and trauma bay number to. Patient seen immediately upon arrival. Vital signs are stable. Patient is well-appearing. Magnet was placed over pacemaker showing the patient has underlying dual atrial ventricular paced rhythm. EKG Findings - EKG Comments: EKG Findings:: My EKG interpretation: Ventricular rate 70, atrial paced rhythm,. Interval to 56, QRS 99, QTC 429. No CT prolongation, no QTC prolongation, no ST or T-wave changes noted. EKG compared to over 2018 showing no changes. Overall, this EKG is unremarkable Medical Decision Making - Medical Decision Making Was pt. sent in by a medical professional or institution ([facility], CHAIN MAKER, urgent care, hospital, or fdc...) When possible be specific @ -No Did you speak to anyone other than the patient for history (EMS, parent, family, police, friend...)? What history was obtained from this source @ -No Did you review nursing and triage notes (agree or disagree)? Why? @ -I reviewed and agree with nursing and triage notes Were old charts reviewed (outside hosp., previous admission, EMS record, old EK G, old radiological studies, urgent care reports/EKG's, fdc records)? Report findings @ -No old charts were reviewed Differential Diagnosis (chest pain, altered mental status, abdominal pain women, abdominal pain men, vaginal bleeding, musculoskeletal, weakness, fever, dyspnea, syncope, headache, dizziness, GI bleed, back pain, seizure, CVA, palpatations, mental health)? @ -Differential Chest Pain: Stable Angina, Unstable Angina, STEMI, NSTEMI Aortic Dissection, Pneumothorax, Musculoskeletal, Esophageal Spasm GERD, Cholecystitis, Pancreatitis, Zoster, this is not meant to be an all-inclusive list. EKG interpreted by me (3pts min.). @ -See above X-rays interpreted by me (1pt min.). @ -Chest x-ray is unremarkable for acute processes CT interpreted by me (1pt min.). @ -None done U/S interpreted by me (1pt. min.). @ -None done What testing was considered but not performed or refused? (CT, X-rays, U/S, labs)? Why? @ -None What meds were considered but not given or refused? Why? @ -None Did you discuss the management of the patient with other professionals (professionals i.e. , PA, CHAIN MAKER, lab, RT, psych nurse, social work msw, pv design engineer, teacher, public records officer, case loader operator)? Give summary @ -Patient case discussed with hospitalist for admission Was smoking cessation discussed for >3mins.? @ -No Was critical care preformed (if so, how long)? @ -No Were there social determinants of health that impacted care today? How? (Homelessness, low income, unemployed, alcoholism, drug addiction, transportation, low edu. Level, literacy, decrease access to med. care, longterm, rehab)? @ -No Was there de-escalation of care discussed even if they declined (Discuss DNR or withdrawal of care, Hospice)? DNR status @ -No What co-morbidities impacted this encounter? (DM, HTN, Smoking, COPD, CAD, Cancer, CVA, ARF, Chemo, Hep., AIDS, mental health diagnosis, sleep apnea, morbid obesity)? @ -None Was patient admitted / discharged? Hospital course, mention meds given and route, prescriptions, significant lab abnormalities, going to OR and other pertinent info. @ -77-year-old male with atypical chest pain typical features. Patient is asymptomatic at the bedside. Vital signs are stable. EKG is unremarkable. Labs are within acceptable limits. Anemia of 10.0 which is around his baseline. Troponin is negative. Patient reevaluated at bedside for a upon the within stable medical condition. Patient has no active chest pain at the bedside. Undiagnosed new problem with uncertain prognosis? @ -No Drug Therapy requiring intensive monitoring for toxicity (Heparin, Nitro, Insulin, Cardizem)? @ -No Were any procedures done? @ -No Diagnosis/symptom? Acute, or Chronic, or Acute on Chronic? Uncomplicated (without systemic symptoms) or Complicated (systemic symptoms)? @ -Chest pain Side effects of treatment? @ -No Exacerbation, Progression, or Severe Exacerbation? @ -No Poses a threat to life or bodily function? How? (Chest pain, USA, MA, pneumonia, PE, COPD, DKA, ARF, appy, cholecystitis, CVA, Diverticulitis, Homicidal, Suicidal, threat to staff... and all critical care pts) @ -yes - Lab Data Result diagrams: 02/15/23 07:56 02/15/23 07:56 Lab Results 02/15/23 02/15/23 02/15/23 Range/Units 07:56 07:56 07:56 WBC 6.0 (3.8-10.6) k/uL RBC 3.77 L (4.30-5.90) m/uL Hgb 10.0 L (13.0-17.5) gm/dL Hct 31.8 L (39.0-53.0) % MCV 84.4 (80.0-100.0) fL MCH 26.6 (25.0-35.0) pg MCHC 31.5 (31.0-37.0) g/dL RDW 16.9 H (11.5-15.5) % Plt Count 166 (150-450) k/uL MPV 8.2 Neutrophils % 70 % Lymphocytes % 13 % Monocytes % 10 % Eosinophils % 5 % Basophils % 0 % Neutrophils # 4.2 (1.3-7.7) k/uL Lymphocytes # 0.8 L (1.0-4.8) k/uL Monocytes # 0.6 (0-1.0) k/uL Eosinophils # 0.3 (0-0.7) k/uL Basophils # 0.0 (0-0.2) k/uL Hypochromasia Slight Anisocytosis Slight PT 13.1 H (9.0-12.0) sec INR 1.3 H (<1.2) APTT 33.0 H (22.0-30.0) sec Sodium 136 L (137-145) mmol/L Potassium 5.0 (3.5-5.1) mmol/L Chloride 107 (98-107) mmol/L Carbon Dioxide 27 (22-30) mmol/L Anion Gap 2 mmol/L BUN 26 H (9-20) mg/dL Creatinine 0.95 (0.66-1.25) mg/dL Est GFR (CKD-EPI)AfAm >90 (>60 ml/min/1.73 sqM) Est GFR (CKD-EPI)NonAf 78 (>60 ml/min/1.73 sqM) Glucose 190 H (74-99) mg/dL Plasma Lactic Acid Curtis (0.7-2.0) mmol/L Calcium 8.6 (8.4-10.2) mg/dL Magnesium 2.0 (1.6-2.3) mg/dL Total Bilirubin 0.4 (0.2-1.3) mg/dL AST 98 H (17-59) U/L ALT 54 H (4-49) U/L Alkaline Phosphatase 128 H (38-126) U/L Troponin I (0.000-0.034) ng/mL Total Protein 6.0 L (6.3-8.2) g/dL Albumin 3.1 L (3.5-5.0) g/dL 02/15/23 02/15/23 Range/Units 07:56 07:56 WBC (3.8-10.6) k/uL RBC (4.30-5.90) m/uL Hgb (13.0-17.5) gm/dL Hct (39.0-53.0) % MCV (80.0-100.0) fL MCH (25.0-35.0) pg MCHC (31.0-37.0) g/dL RDW (11.5-15.5) % Plt Count (150-450) k/uL MPV Neutrophils % % Lymphocytes % % Monocytes % % Eosinophils % % Basophils % % Neutrophils # (1.3-7.7) k/uL Lymphocytes # (1.0-4.8) k/uL Monocytes # (0-1.0) k/uL Eosinophils # (0-0.7) k/uL Basophils # (0-0.2) k/uL Hypochromasia Anisocytosis PT (9.0-12.0) sec INR (<1.2) APTT (22.0-30.0) sec Sodium (137-145) mmol/L Potassium (3.5-5.1) mmol/L Chloride (98-107) mmol/L Carbon Dioxide (22-30) mmol/L Anion Gap mmol/L BUN (9-20) mg/dL Creatinine (0.66-1.25) mg/dL Est GFR (CKD-EPI)AfAm (>60 ml/min/1.73 sqM) Est GFR (CKD-EPI)NonAf (>60 ml/min/1.73 sqM) Glucose (74-99) mg/dL Plasma Lactic Acid Curtis 1.0 (0.7-2.0) mmol/L Calcium (8.4-10.2) mg/dL Magnesium (1.6-2.3) mg/dL Total Bilirubin (0.2-1.3) mg/dL AST (17-59) U/L ALT (4-49) U/L Alkaline Phosphatase (38-126) U/L Troponin I <0.012 (0.000-0.034) ng/mL Total Protein (6.3-8.2) g/dL Albumin (3.5-5.0) g/dL Disposition Clinical Impression: Chest pain Disposition: ADMITTED IP TO THIS HOSP Condition: Fair Referrals: Slick Krishnan MD [Primary Care Provider] - 1-2 days Decision Time: 10:00
--- NOTE | 2023-02-15 09:04 | XR ---
EXAMINATION TYPE: XR chest 2V DATE OF EXAM: 02/15/2023 COMPARISON: 07/23/2018 HISTORY: Shortness of breath TECHNIQUE: Frontal and lateral views of the chest are obtained. FINDINGS: Scattered senescent parenchymal changes noted. Hyperinflation compatible with COPD. No evidence for infiltrate. No evidence for atelectasis. Heart size is stable. Mediastinal structures are stable and grossly unremarkable. No evidence for hilar prominence. Degenerative changes dorsal spine. IMPRESSION: 1. No evidence for acute pulmonary disease.
[2023-02-15] MEDS ORDERED: NITROGLYCERIN SL TABS 0.4 MG TAB SUBLINGUAL PRN ×2 (10:59→12:16)
--- NOTE | 2023-02-15 11:57 | P.HPIM ---
History of Present Illness H&P Date: 02/15/23 Chief Complaint: Chest Pain History of Presenting Illness: Patient is a very pleasant 77-year-old male with a past medical history of CAD status post stenting and permanent pacemaker placement, paroxysmal atrial fibrillation on anticoagulation with Xarelto, hypertension, hyperlipidemia, prostate cancer with previous diagnosis of adenocarcinoma of prostate with chronic prostatitis on orgovyx and flomax and restless leg syndrome. He presented to the emergency department with a chief complaint of chest pain. Patient reported while lying in bed he had sudden onset pain midsternal chest /epigastric region radiating upwards into his back and right lower jaw. Patient describes this pain as squeezing in nature and reports was accompanied by nausea and shortness of breath. He denies having any headache, lightheadedness, dizzi ness, palpitations, cough or congestion, vomiting, or experiencing any numbness/tingling/weakness/swelling in his extremities. Patient reports because of his history, he immediately took 4 baby aspirin at home and called EMS for transport to the hospital. Per ER documentation EMS provided patient with 2 sublingual nitroglycerin in which patient reports did result in improvement of his pain. Patient underwent full evaluation in the emergency department. Vital signs upon arrival blood pressure 117/78, heart rate 70, respiratory rate 16, temp 97.8F, SpO2 of 95% on room air. Labs completed and reviewed. CBC showing normocytic anemia with hemoglobin of 10.0. Coagulation profile showing elevated PT of 13.1, INR 1.3, and PTT of 33.0. BMP showing mild prerenal azotemia with BUN of 26 otherwise normal renal function with creatinine of 0.95 and GFR greater of 78. Liver profile showing transaminitis with AST of 98, ALT of 54, alkaline phosphatase of 128. Troponin was negative at less than 0.012. Initial EKG completed at 7:45 AM showing an atrial paced rhythm at 70 bpm and repeat EKG completed at 7:49 AM showing a ventricular paced rhythm at 84 bpm. Chest x-ray completed, lungs appear clear radiology report stating negative for acute cardiopulmonary process. Patient reported taking 4 baby aspirins prior to arrival and received 2 nitro via EMS in which she reported resulted in mild improvement of his symptoms. Discussed patient's history, chief complaint, laboratory analysis, and imaging results in detail with the ED physician. Patient to be admitted to cardiac observation unit with telemetry under our services with consultation to cardiology. Pt reports he follows with water reuse program manager Dr. Frankie Jenkins out of [facility]. Review of systems: Pertinent positives and negatives as discussed in HPI, a complete review of systems was performed and all other systems are negative. Physical exam: Vital signs reviewed and stable. General: Nontoxic, no distress and appears stated age. Derm: Skin warm and dry, normal coloration for ethnicity. Head: Atraumatic, normocephalic and symmetric. Eyes: EOMs intact, no lid lag, and anicteric sclera Mouth: no lip lesions, mucus membranes moist Cardiovascular: regular rate and rhythm with normal S1S2, systolic murmur, posi tive posterior tibial pulses bilaterally, and cap refill < 2 seconds. Pacemaker Left anterior chest Lungs: Respirations even, regular, and unlabored on room air. Lungs CTA bilaterally, no rhonchi, no rales, no wheezing, and no accessory muscle usage. Abdominal: soft, tenderness upon palpation to epigastric region. No guarding, no appreciable organomegaly Ext: ROM intact. No gross muscle atrophy, no edema, no contractures Neuro: Speech clear, face symmetrical and CN II-XII grossly intact with no noted focal neuro deficits Psych: Alert and oriented to person, place, time, and situation. Appropriate and pleasant affect. Assessment and Plan of Care: Atypical Chest/Epigastric pain History of CAD status post stenting and permanent pacemaker placement. Paroxysmal atrial fibrillation Hypertension Hyperlipidemia Transaminitis -Cardiology consult, appreciate further recommendations -Telemetry monitoring -Trend troponins -Order placed for stat lipase -Cardiac diet -Continue cardiac medication regimen with aspirin 81 mg daily, amiodarone 200 mg nightly, bisoprolol 2.5 mg nightly, Zetia 10 mg nightly, and Xarelto 20 mg daily with dinner. -Obtain pacemaker interrogation -Discussed elevated liver enzymes with patient and history of alcohol use. Patient does report drinking no more than 1 alcoholic beverage daily. Patient r eports sometimes he will drink one emily beer with dinner or occasionally a glass of Chardonnay at night if he is having difficulty sleeping. He denies any history of excessive alcohol use or abuse. No history of transaminitis in the past. Data reviewed: Vital signs upon arrival blood pressure 117/78, heart rate 70, respiratory rate 16, temp 97.8F, SpO2 of 95% on room air. Labs completed and reviewed. CBC showing normocytic anemia with hemoglobin of 10.0. Coagulation profile showing elevated PT of 13.1, INR 1.3, and PTT of 33.0. BMP showing mild prerenal azotemia with BUN of 26 otherwise normal renal function with creatinine of 0.95 and GFR greater of 78. Liver profile showing transaminitis with AST of 98, ALT of 54, alkaline phosphatase of 128. Troponin was negative at less than 0.012. Imaging reviewed: Initial EKG completed at 7:45 AM showing an atrial paced rhythm at 70 bpm and repeat EKG completed at 7:49 AM showing a ventricular paced rhythm at 84 bpm. Chest x-ray completed, lungs appear clear radiology report stating negative for acute cardiopulmonary process. Discussed patient's history, chief complaint, laboratory analysis, and imaging results in detail with the ED physician. Patient to be admitted to cardiac observation unit with telemetry under our services with consultation to cardiology. The patient is admitted with an anticipated less than 2 midnight stay for evaluation of chest/epigastric pain CODE STATUS: Full code DVT prophylaxis: Xarelto Discussed with: Patient, ED physician and RN Anticipated discharge date: Anticipate 24-[address]: Home Patient was seen independently by Nurse Practitioner. This document was prepared using [employer] dictation software. Please allow for errors in plate embosser while rare they do occur. Past Medical History Past Medical History: Atrial Fibrillation, Coronary Artery Disease (CAD), Chest Pain / Angina, GERD/Reflux, Hyperlipidemia, Osteoarthritis (OA), Prostate Disorder Additional Past Medical History / Comment(s): Anemia-recent positive Cologuard test and +stool OB-had EGD and colonoscopy which showed gastritis/hiatal hernia and a normal colon, past diverticulitis, NIDDM-diet controlled, bradycardia with pacemaker, BPH, chronic proctatitis,on antibiotics currently for that, gout, History of Any Multi-Drug Resistant Organisms: None Reported Past Surgical History: Bowel Resection, Heart Catheterization With Stent, Pacemaker, Tonsillectomy Additional Past Surgical History / Comment(s): EGDs, colonoscopies with last time for both being 06/22/18, BOWEL RESECTION D/T DIVERTICULITIS,STENT TO RCA Past Anesthesia/Blood Transfusion Reactions: No Reported Reaction Date of Last Stent Placement:: 11-08-13 Type of Cardiac Device: Permanent Pacemaker Device Placement Date:: 2013 Past Psychological History: No Psychological Hx Reported Smoking Status: Former smoker Past Alcohol Use History: Daily Past Drug Use History: None Reported - Past Family History Father Family Medical History: Cancer Additional Family Medical History / Comment(s): Father at age 89. He had lung issues and lung cancer. Mother Family Medical History: Myocardial Infarction ([place]) Additional Family Medical History / Comment(s): Mother had a [place] in her 60s. She lived to be 89yrs old. Medications and Allergies Home Medications Medication Instructions Recorded Confirmed Type Ezetimibe [Zetia] 10 mg PO DAILY 11/08/13 11/11/19 History Nitroglycerin Sl Tabs [Nitrostat] 0.4 mg SUBLINGUAL Q5M PRN #25 tab 11/09/13 11/11/19 Rx Rivaroxaban [Xarelto] 20 mg PO DAILY 06/21/18 11/11/19 History Probenecid [Benemid] 500 mg PO BID 07/23/18 11/11/19 History Amiodarone [Cordarone] 200 mg PO HS 02/15/23 02/15/23 History Bisoprolol Fumarate 2.5 mg PO HS 02/15/23 02/15/23 History Cholecalciferol [Vitamin D3 (25 25 mcg PO DAILY 02/15/23 02/15/23 History Mcg = 1000 Iu)] Ferrous Sulfate [Slow Release Iron] 140 mg PO Q78H 02/15/23 02/15/23 History Relugolix [Orgovyx] 120 mg PO HS 02/15/23 02/15/23 History Tamsulosin [Flomax] 0.4 mg PO HS 02/15/23 02/15/23 History Allergies Allergy/AdvReac Type Severity Reaction Status Date / Time morphine AdvReac Nausea,room Verified 02/15/23 12:13 spins Physical Exam Vitals: Vital Signs Temp Pulse Resp BP Pulse Ox 02/15/23 09:00 60 16 111/68 99 02/15/23 08:00 61 16 121/69 96 02/15/23 07:46 97.8 F 70 16 117/78 95 Intake and Output 02/14/23 02/15/23 02/15/23 22:59 06:59 14:59 Other: Weight 90.718 kg Results CBC & Chem 7: 02/15/23 07:56 09/17/23 07:56 Labs: Abnormal Lab Results - Last 24 Hours (Table) 02/15/23 02/15/23 02/15/23 Range/Units 07:56 07:56 07:56 RBC 3.77 L (4.30-5.90) m/uL Hgb 10.0 L (13.0-17.5) gm/dL Hct 31.8 L (39.0-53.0) % RDW 16.9 H (11.5-15.5) % Lymphocytes # 0.8 L (1.0-4.8) k/uL PT 13.1 H (9.0-12.0) sec INR 1.3 H (<1.2) APTT 33.0 H (22.0-30.0) sec Sodium 136 L (137-145) mmol/L BUN 26 H (9-20) mg/dL Glucose 190 H (74-99) mg/dL AST 98 H (17-59) U/L ALT 54 H (4-49) U/L Alkaline Phosphatase 128 H (38-126) U/L Total Protein 6.0 L (6.3-8.2) g/dL Albumin 3.1 L (3.5-5.0) g/dL
--- NOTE | 2023-02-15 12:01 | P.CRDCN ---
History of Present Illness Consult date: 02/15/23 History of present illness: HISTORY OF PRESENTING ILLNESS Patient is a 77-year-old male with past medical history of coronary artery disease status post PCI, atrial fibrillation status post permanent pacemaker, currently in sinus rhythm. He also has history of prostate cancer status post androgen receptor skye therapy and recent radiation therapy one month ago. He follows up with Dr. Benitez in [place] with [facility] He presented to the hospital with symptoms of substernal chest pain that he describes as sharp, left-sided, hyperlipidemia was changing his position in bed this lasted for approximately 10-15 minutes and then resolved 2 days history. He has not had any recurrence of the symptoms. Over last 1-2 months she has noticed reduction in excess capacity but he attributes this to his androgen rec eptor skye therapy. He otherwise denies any worsening shortness of breath. His EKG shows AV paced rhythm. His telemetry shows sinus rhythm History of troponin 1 is negative REVIEW OF SYSTEMS 14 point review of system is negative except what is mentioned above in HPI. PHYSICAL EXAMINATION Vital signs reviewed. Head: Normocephalic. Eyes: Sclerae nonicteric. Neck: Brisk carotid upstroke, no jugular venous distention. Lungs: Clear to auscultation. Heart: Regular rate and rhythm, S1-S2, no S3, no murmur or rub. Abdomen: Soft nontender, positive bowel sounds no organomegaly. Extremities: No edema, intact distal pulses. ASSESSMENT Atypical chest pain History of CAD status post PCI more than 5 years ago History of atrial fibrillation, paroxysmal. Currently in sinus rhythm History of permanent pacemaker Prostate cancer status post recent radiation and androgen receptor skye therapy Statin intolerance PLAN Continue his current cardiac medications includes aspirin, amiodarone, Xarelto. Resume his Praluent on discharge. Obtain an echocardiogram From patient's description negative ECG and negative troponin I feel it is less likely ACS. Continue to trend troponins. If negative obtain an echocardiogram and if normal, okay to discharge patient. Patient had a recent stress test with his primary net coordinator. I recommend that he follows up with his net coordinator outpatient repeat stress evaluation and have a comparative study. Past Medical History Past Medical History: Atrial Fibrillation, Coronary Artery Disease (CAD), Chest Pain / Angina, GERD/Reflux, Hyperlipidemia, Osteoarthritis (OA), Prostate Disorder Additional Past Medical History / Comment(s): Anemia-recent positive Cologuard test and +stool OB-had EGD and colonoscopy which showed gastritis/hiatal hernia and a normal colon, past diverticulitis, NIDDM-diet controlled, bradycardia with pacemaker, BPH, chronic proctatitis,on antibiotics currently for that, gout, History of Any Multi-Drug Resistant Organisms: None Reported Past Surgical History: Bowel Resection, Heart Catheterization With Stent, Pacemaker, Tonsillectomy Additional Past Surgical History / Comment(s): EGDs, colonoscopies with last time for both being 06/22/18, BOWEL RESECTION D/T DIVERTICULITIS,STENT TO RCA Past Anesthesia/Blood Transfusion Reactions: No Reported Reaction Date of Last Stent Placement:: 11-08-13 Type of Cardiac Device: Permanent Pacemaker Device Placement Date:: 2013 Past Psychological History: No Psychological Hx Reported Smoking Status: Former smoker Past Alcohol Use History: Daily Past Drug Use History: None Reported - Past Family History Father Family Medical History: Cancer Additional Family Medical History / Comment(s): Father at age 89. He had lung issues and lung cancer. Mother Family Medical History: Myocardial Infarction ([place]) Additional Family Medical History / Comment(s): Mother had a [place] in her 60s. She lived to be 89yrs old. Medications and Allergies Home Medications Medication Instructions Recorded Confirmed Type Cholecalciferol [Vitamin D3 (25 2,000 unit PO DAILY 11/08/13 11/11/19 History Mcg = 1000 Iu)] Ezetimibe [Zetia] 10 mg PO DAILY 11/08/13 11/11/19 History Nitroglycerin Sl Tabs [Nitrostat] 0.4 mg SUBLINGUAL Q5M PRN #25 tab 11/09/13 11/11/19 Rx Amiodarone HCl [Pacerone] 200 mg PO DAILY 06/21/18 11/11/19 History Aspirin 81 mg PO DAILY 06/21/18 11/11/19 History Rivaroxaban [Xarelto] 20 mg PO DAILY 06/21/18 11/11/19 History Alirocumab [Praluent Pen] 75 mg SQ Q14D 07/23/18 11/11/19 History Probenecid [Benemid] 500 mg PO BID 07/23/18 11/11/19 History rOPINIRole HCL [Requip] 0.5 mg PO HS 07/23/18 11/11/19 History tadalafiL [Cialis] 5 mg PO ONCE PRN 07/23/18 11/11/19 History Ciprofloxacin HCl [Cipro] 500 mg PO Q12HR 11/11/19 11/11/19 History Allergies Allergy/AdvReac Type Severity Reaction Status Date / Time morphine AdvReac Nausea,room Verified 02/15/23 07:53 spins Physical Exam Vitals: Vital Signs Temp Pulse Resp BP Pulse Ox 02/15/23 09:00 60 16 111/68 99 02/15/23 08:00 61 16 121/69 96 02/15/23 07:46 97.8 F 70 16 117/78 95 Intake and Output 02/14/23 02/15/23 02/15/23 22:59 06:59 14:59 Other: Weight 90.718 kg Results 02/15/23 07:56 02/15/23 07:56 Cardiac Enzymes 02/15/23 02/15/23 Range/Units 07:56 07:56 AST 98 H (17-59) U/L Troponin I <0.012 (0.000-0.034) ng/mL Coagulation 02/15/23 Range/Units 07:56 PT 13.1 H (9.0-12.0) sec APTT 33.0 H (22.0-30.0) sec CBC 02/15/23 Range/Units 07:56 WBC 6.0 (3.8-10.6) k/uL RBC 3.77 L (4.30-5.90) m/uL Hgb 10.0 L (13.0-17.5) gm/dL Hct 31.8 L (39.0-53.0) % Plt Count 166 (150-450) k/uL Comprehensive Metabolic Panel 02/15/23 Range/Units 07:56 Sodium 136 L (137-145) mmol/L Potassium 5.0 (3.5-5.1) mmol/L Chloride 107 (98-107) mmol/L Carbon Dioxide 27 (22-30) mmol/L BUN 26 H (9-20) mg/dL Creatinine 0.95 (0.66-1.25) mg/dL Glucose 190 H (74-99) mg/dL Calcium 8.6 (8.4-10.2) mg/dL AST 98 H (17-59) U/L ALT 54 H (4-49) U/L Alkaline Phosphatase 128 H (38-126) U/L Total Protein 6.0 L (6.3-8.2) g/dL Albumin 3.1 L (3.5-5.0) g/dL Current Medications Generic Name Dose Route Start Last Admin Trade Name Freq PRN Reason Stop Dose Admin Aspirin 325 mg 02/16/23 09:00 Aspirin 325 Mg Tab PO DAILY CHIQUI Nitroglycerin 0.4 mg 02/15/23 10:59 Nitroglycerin Sl Tabs 0.4 Mg Tab SUBLINGUAL Q5M PRN Chest Pain Intake and Output 02/14/23 02/15/23 02/15/23 22:59 06:59 14:59 Other: Weight 90.718 kg Patient Weight 02/16/23 06:59 Weight 90.718 kg 02/15/23 07:56 02/15/23 07:56
[2023-02-15] MEDS ORDERED: FERROUS SULFATE 325 MG TAB PO SCH (12:30)
--- NOTE | 2023-02-15 14:06 | CT ---
EXAMINATION TYPE: CT abdomen pelvis w con DATE OF EXAM: 02/15/2023 COMPARISON: 01/19/2018 HISTORY: EPIGASTRIC PAIN CT DLP: 1293.4 mGycm Automated exposure control for dose reduction was used. CONTRAST: CT scan of the abdomen pelvis is performed with IV Contrast, patient injected with 100 mL of Isovue 3 00. FINDINGS- LUNG BASES- bilateral basilar atelectasis. Cardiac leads noted. LIVER/GB- postcholecystectomy changes with mild intrahepatic biliary ductal dilation versus peripor estee edema. PANCREAS- No gross abnormality is seen. SPLEEN- small accessory spleen. ADRENALS- No gross abnormality is seen. KIDNEYS/BLADDER- no hydronephrosis nephrolithiasis or renal mass. BOWEL- nonspecific with no evidence of obstruction. Surgery involving the right colon could be relat ed to prior appendectomy correlate clinically. LYMPH NODES- No greater than 1cm abdominal or pelvic lymph nodes are appreciated. OSSEOUS STRUCTURES- multilevel hypertrophic and degenerative changes. Grade 1 anterolisthesis L4 on L5 and L5 on S1 facet arthropathy. OTHER- bilateral fat-containing inguinal hernia. Prostate metallic seeds with calcification. Nonspec ific soft tissue edema along the anterior left abdominal subcutaneous tissues. Bladder distends normally. There is a tiny punctate calcification the right lateral bladder wall. IMPRESSION- 1. Postcholecystectomy changes with mild central intrahepatic biliary ductal dilation versus periport al edema. 2. Bibasilar atelectasis. 3. Small hiatal hernia with esophageal wall thickening correlate for reflux esophagitis.
[2023-02-15] MEDS ORDERED: MAG HYDROX/AL HYDROX/SIMETH 30 ML, HYOSCYAMINE ELIXIR 10 ML, LIDOCAINE VISCOUS 10 ML PO PRN ×3 (15:56)
[2023-02-15] MEDS ORDERED: RIVAROXABAN 20 MG TAB PO SCH (17:30)
[2023-02-15] MEDS: PROBENECID 500 MG TAB PO SCH (20:47)
[2023-02-15] MEDS ORDERED: AMIODARONE 200 MG TAB PO SCH (21:00)
[2023-02-15] MEDS ORDERED: RELUGOLIX 120 MG PO SCH (21:00)
[2023-02-15] MEDS ORDERED: BISOPROLOL 5 MG TAB PO SCH (21:00)
[2023-02-15] MEDS ORDERED: EZETIMIBE 10 MG TAB PO SCH (21:00)
[2023-02-15] MEDS ORDERED: TAMSULOSIN 0.4 MG CAP.ER.24H PO SCH (21:00)
[2023-02-15] MEDS ORDERED: diazePAM 2 MG TAB PO STA (22:55)
[2023-02-16 07:57] VITALS: RESP 14
[2023-02-16] MEDS: PROBENECID 500 MG TAB PO SCH (08:56)
[2023-02-16] MEDS ORDERED: CHOLECALCIFEROL 25 MCG (1000 IU) TABLET PO SCH (09:00)
[2023-02-16] MEDS ORDERED: PANTOPRAZOLE 40 MG TABLET PO SCH ×2 (09:00→17:30)
[2023-02-16] MEDS ORDERED: ASPIRIN 325 MG TAB PO SCH (09:00)
[2023-02-16] MEDS ORDERED: ASPIRIN 81 MG PO SCH (09:00)
[2023-02-16 10:55] LABS: HCT 32.8 % (39.6-50.0); HGB 9.8 d/dL (13.0-17.0); MCH 25.7 pg (27.0-32.0); MCHC 29.9 d/dL (32.0-37.0); MCV 86.1 FL (80.0-97.0); Mean Platelet Volume 10.3 FL (9.5-12.2); NRBC Per 100 WBC 0 X 10*3/uL (0.00-0.01); Platelet Count 150 X 10*3/uL (140-440); RBC 3.81 X 10*6/uL (4.40-5.60); WBC 5.56 X 10*3/uL (4.50-10.00)
[2023-02-16 11:02] LABS: ALT 57 U/L (10-49); AST 91 U/L (14-35); Albumin 3.5 d/dL (3.8-4.9); Albumin/Globulin Ratio 1.52 Ratio (1.60-3.17); Alkaline Phosphatase 117 U/L (41-126); BUN/Creat Ratio 18.82 Ratio (12.00-20.00); Blood Urea Nitrogen 20.7 mg/dL (9.0-27.0); Calcium 8.9 mg/dL (8.7-10.3); Carbon Dioxide 22.7 mmol/L (21.6-31.8); Chloride 102 mmol/L (96-109); Chol/HDL Ratio 3.17 Ratio; Globulin 2.3 d/dL (1.6-3.3); Glucose 140 mg/dL (70-110); LDL Cholesterol,Calculated 84.6 mg/dL (0.0-131.0); Potassium 4.4 mmol/L (3.5-5.5); Sodium 135 mmol/L (135-145); Total Bilirubin <0.2 mg/dL (0.3-1.2); Total Protein 5.8 d/dL (6.2-8.2); VLDL Calculation 16.12 mg/dL (5.00-40.00)
--- NOTE | 2023-02-16 12:49 | CA ---
Transthoracic Echo Report Name: Slick Juares Age: 77 Gender: M : 1945 Exam Date: 02/16/2023 08:50 Exam Location: [facility] Ht (in): 71 Wt (lb): 200 Ordering Physician: Sohail Caballero Attending/Referring Phys: Maintenance Plumber Son Velez Procedure CPT: Indications: Assess structure and function Cardiac Hx: Technical Quality: Fair Contrast 1: Total Dose (mL): Contrast 2: Total Dose (mL): MEASUREMENTS (Male / Female) Normal Values 2D ECHO RV Internal Dim ED PLAX 3.3 cm LVOT Diameter 2.3 cm Aortic Root Diameter 3.4 cm LA Systolic Diameter LX 2.7 cm 3.0 - 4.0 / 2.7 - 3.8 cm LV Diastolic Volume MOD BP 39.1 cm??? 67 - 155 / 56 - 104 cm??? LV Systolic Volume MOD BP 18.1 cm??? 22 - 58 / 19 - 49 cm??? LV Ejection Fraction MOD BP 53.7 % >= 55 % LV Cardiac Index MOD BP 634.3 cm???/min???m??? LV Diastolic Volume MOD 4C 55.1 cm??? LV Systolic Volume MOD 4C 31.6 cm??? LV Ejection Fraction MOD 4C 42.6 % LV Cardiac Index MOD 4C 710.6 cm???/min???m??? LV Diastolic Length 4C 6.6 cm LV Systolic Length 4C 6.0 cm LV Diastolic Volume MOD 2C 26.3 cm??? LV Systolic Volume MOD 2C 10.3 cm??? LV Ejection Fraction MOD 2C 60.8 % LV Cardiac Index MOD 2C 483.4 cm???/min???m??? LV Diastolic Length 2C 7.1 cm LV Systolic Length 2C 6.4 cm LA Volume 41.1 cm??? 18 - 58 / 22 - 52 cm??? Ascending Aorta Diameter 3.1 cm DOPPLER AV Peak Velocity 115.3 cm/s AV Peak Gradient 5.3 mmHg AV Mean Velocity 75.4 cm/s AV Mean Gradient 2.6 mmHg AV Velocity Time Integral 24.0 cm LVOT Peak Velocity 98.7 cm/s LVOT Peak Gradient 3.9 mmHg LVOT Velocity Time Integral 22.5 cm LVOT Stroke Volume 93.3 cm??? LVOT Stroke Volume Index 44.2 ml/m??? LVOT Cardiac Index 2822.6 cm???/min???m??? AV Area Cont Eq vti 3.9 cm??? AV Area Cont Eq pk 3.6 cm??? MV Peak Velocity 89.2 cm/s MV Peak Gradient 3.2 mmHg MV Mean Velocity 39.8 cm/s MV Mean Gradient 0.8 mmHg MV Velocity Time Integral 28.8 cm Mitral E Point Velocity 50.1 cm/s Mitral A Point Velocity 64.6 cm/s Mitral E to A Ratio 0.8 MV Deceleration Time 518.5 ms MV E' Velocity 6.2 cm/s Mitral E to MV E' Ratio 8.0 TR Peak Velocity 245.7 cm/s TR Peak Gradient 24.2 mmHg Right Ventricular Systolic Press 29.2 mmHg FINDINGS Left Ventricle Normal LV size and wall thickness. Left ventricular ejection fraction is estimated at 55 %. Right Ventricle Normal right ventricular size. Right Atrium Normal right atrial size. Left Atrium Normal left atrial size. Mitral Valve Structurally normal mitral valve. Trace MR. Aortic Valve Trileaflet aortic valve. No aortic valve stenosis or regurgitation. Tricuspid Valve Structurally normal tricuspid valve. Mild TR. Pulmonic Valve Pulmonic valve not well visualized. No pulmonic regurgitation. Pericardium Normal pericardium. Aorta Normal size aortic root and proximal ascending aorta. CONCLUSIONS Left ventricular ejection fraction 55% Trace mitral regurgitation Mild tricuspid regurgitation RVSP 29 Previewed by: Dr. Lincoln Leung DO (Electronically Signed) Final Date: 16 February 2023 12:48
[2023-02-16 14:10] VITALS: BP 105/53; PULSE 70; TEMP 98.1
--- NOTE | 2023-02-16 15:06 | P.CONS ---
History of Present Illness - Reason for Consult Consult date: 02/16/23 Biliary ductal dilation versus periPortal edema/reflux esophagitis Requesting physician: Sohail Caballero - Chief Complaint Chest pain - History of Present Illness This is a pleasant 77-year-old male who presented to the emergency department with complaints of chest pain mostly in the substernal to right chest lasting about 10 minutes associated with shortness of breath. Patient has a history of coronary artery disease status post PCI, atrial fibrillation and permanent pac emaker, as well as history of GERD, anemia and positive color guard. Patient states he had both EGD and colonoscopy about 2 years ago which she states was normal. He did have EGD colonoscopy done in June [address] Bryant with findings of small sliding hiatal hernia but no obvious esophagitis or complicated reflux disease. Mild antral gastritis. Multiple biopsies obtained from duodenum intermittent esophagitis, colonoscopy within normal limits. Biopsies reported chronic gastritis and chronic esophagitis with rare intramucosal eosinophils consistent with reflux esophagitis. He also had mild elevation of his LFTs, for which CT of the abdomen and pelvis was ordered. CT abdomen and pelvis with contrast reported postcholecystectomy changes with mild central intrahepatic biliary ductal dilation versus periportal edema. Bibasilar atelectasis. Small hiatal hernia with esophageal wall thickening correlate for reflux esophagitis. He currently denies any chest pain, denies any abdominal pain, nausea or vomiting. States he used to have GERD, he had cut out coffee and was able to stop his medications. States chest pain was not similar to gallstone pain in the past. There is no elevation of bilirubin, repeat LFTs today remain mildly elevated. Review of Systems REVIEW OF SYSTEMS: CARDIOPULMONARY: Complaints of chest pain midsternum and 2 right chest a ssociated with shortness of breath. Gastrointestinal: Patient came in with complaints of chest pain, no abdominal pain or epigastric pain. No nausea or vomiting. No hematemesis, coffee-ground emesis. No rectal bleeding, or melena. GENITOURINARY: No dysuria or hematuria. MUSCULOSKELETAL: Reports normal range of motion., Joint pain. SKIN: No rashes. No jaundice. ENDOCRINE: No chills, fevers. No excessive weight gain or loss. No polydipsia or polyuria. PSYCHIATRIC: Unremarkable. NEUROLOGY: No change in mental status. Denies dizziness, headache. ENT: Vision unremarkable. CONSTITUTIONAL: No recent weight loss. No fever, chills, night sweats. Past Medical History Past Medical History: Atrial Fibrillation, Coronary Artery Disease (CAD), Chest Pain / Angina, GERD/Reflux, Hyperlipidemia, Osteoarthritis (OA), Prostate Disorder Additional Past Medical History / Comment(s): Anemia-recent positive Cologuard test and +stool OB-had EGD and colonoscopy which showed gastritis/hiatal hernia and a normal colon, past diverticulitis, NIDDM-diet controlled, bradycardia with pacemaker, BPH, chronic proctatitis,on antibiotics currently for that, gout, History of Any Multi-Drug Resistant Organisms: None Reported Past Surgical History: Bowel Resection, Heart Catheterization With Stent, Pacemaker, Tonsillectomy Additional Past Surgical History / Comment(s): EGDs, colonoscopies with last time for both being 06/22/18, BOWEL RESECTION D/T DIVERTICULITIS,STENT TO RCA Past Anesthesia/Blood Transfusion Reactions: No Reported Reaction Date of Last Stent Placement:: 11-08-13 Type of Cardiac Device: Permanent Pacemaker Device Placement Date:: 2013 Past Psychological History: No Psychological Hx Reported Additional Psychological History / Comment(s): Pt resides with his spouse. He is retired. He plays tennis 3 times a week. He is independent. He is a diet controlled diabetic and has no glucometer. Smoking Status: Former smoker Past Alcohol Use History: Daily Additional Past Alcohol Use History / Comment(s): Pt smoked from 1968 to 1971. He states he drinks 2-3 glasses of wine a day. Past Drug Use History: None Reported - Past Family History Father Family Medical History: Cancer Additional Family Medical History / Comment(s): Father at age 89. He had lung issues and lung cancer. Mother Family Medical History: Myocardial Infarction (GA) Additional Family Medical History / Comment(s): Mother had a GA in her 60s. She lived to be 89yrs old. Medications and Allergies Home Medications Medication Instructions Recorded Confirmed Type Ezetimibe [Zetia] 10 mg PO HS 11/08/13 02/15/23 History Nitroglycerin Sl Tabs [Nitrostat] 0.4 mg SUBLINGUAL Q5M PRN #25 tab 11/09/13 02/15/23 Rx Rivaroxaban [Xarelto] 20 mg PO W/SUPPER 06/21/18 02/15/23 History Probenecid [Benemid] 500 mg PO BID 07/23/18 02/15/23 History Amiodarone [Cordarone] 200 mg PO HS 02/15/23 02/15/23 History Bisoprolol Fumarate 2.5 mg PO HS 02/15/23 02/15/23 History Cholecalciferol [Vitamin D3 (25 25 mcg PO DAILY 02/15/23 02/15/23 History Mcg = 1000 Iu)] Ferrous Sulfate [Slow Release Iron] 140 mg PO Q78H 02/15/23 02/15/23 History Relugolix [Orgovyx] 120 mg PO HS 02/15/23 02/15/23 History Tamsulosin [Flomax] 0.4 mg PO HS 02/15/23 02/15/23 History Pantoprazole [Protonix] 40 mg PO DAILY #30 tab 02/16/23 Rx Allergies Allergy/AdvReac Type Severity Reaction Status Date / Time morphine AdvReac Nausea,room Verified 02/15/23 12:13 spins Physical Exam Vitals: Vital Signs Temp Pulse Pulse Resp BP BP Pulse Ox 02/16/23 07:00 97.7 F 61 14 109/68 94 L 02/16/23 02:47 97.1 F L 52 L 15 177/68 97 02/15/23 23:06 98.3 F 63 15 133/69 97 02/15/23 21:57 97.6 F 65 18 135/85 97 02/15/23 20:44 60 18 120/62 97 02/15/23 18:37 97.6 F 60 18 121/72 96 02/15/23 13:07 60 16 123/60 97 02/15/23 09:00 60 16 111/68 99 Intake and Output 02/15/23 02/16/23 02/16/23 22:59 06:59 14:59 Other: # Voids 1 Weight 90.718 kg General appearance: The patient is alert, oriented, appears in no acute distress. HET: Head is normocephalic and atraumatic. Conjunctiva pink. Sclera anicteric. Neck: Supple without lymphadenopathy. Trachea midline. Heart: Regular. Lungs: Equal expansion, normal respiratory effort. Abdomen: Soft, nontender, nondistended with bowel sounds. No guarding or rigidity. Skin: No rashes. No jaundice. Extremities: Normal skin color and turgor. No pedal edema. Neurological: No focal deficits. Alert and oriented x3. Results CBC & Chem 7: 02/16/23 05:25 02/16/23 05:25 CT scan - abdomen: report reviewed Assessment and Plan (1) Esophagitis Narrative/Plan: 77-year-old who presented to the emergency department with chest pain and shortness of breath with history coronary artery disease. Acute coronary syndrome was ruled out. Patient's chest pain lasts about 10 minutes and now resolved. He denies any abdominal pain. He does have a history of GERD, he has had prior EGD and colonoscopy for anemia. EGD done in 2019 biopsies revealed chronic gastritis and chronic esophagitis. Patient no longer taking medication as he states symptoms had improved with dietary changes. CT abdomen and pelvis does show some esophageal wall thickening, correlate for esophagitis. Will treat patient for possible esophagitis and will add Protonix 40 mg daily. Follow-up in 4 weeks. If no improvement can consider outpatient upper endoscopy. CT imaging also had reported postcholecystectomy changes with mild central intrahepatic biliary ductal dilation versus periportal edema. Mild intrahepatic biliary ductal dilation may be just post cholecystectomy. No elevated bilirubin, no abdominal pain. No further workup indicated. Current Visit: Yes Status: Acute Code(s): K20.90 - ESOPHAGITIS, UNSPECIFIED WITHOUT BLEEDING SNOMED Code(s): 44304121 (2) Chest pain Current Visit: Yes Status: Acute Code(s): R07.9 - CHEST PAIN, UNSPECIFIED SNOMED Code(s): 61623785 Plan: 1. Continue symptomatic and supportive care 2. Diet as tolerated 3. Protonix 40 mg daily 4. No plans on endoscopic evaluation at this time. Patient will start PPI, follow-up in 4 weeks and if no improvement can consider outpatient upper endoscopy at that time. Thank you for this consultation, the patient is cleared from gastroenterology for discharge. Dr. Lauren Pan I agree with the dictator's note, documented as a scribe by Kaela Silverman.
--- NOTE | 2023-02-16 15:20 | P.DS ---
Providers Date of admission: 02/15/23 10:59 Expected date of discharge: 02/16/23 Attending physician: Saul Astudillo MD Consults: 02/15/23 10:59 Consult Physician Urgent Consulting Provider: Jonas Cheema Consult Reason/Comments: chest pain Do you want consulting provider notified?: Yes 02/16/23 08:04 Consult Physician Routine Consulting Provider: Melissa Pan Consult Reason/Comments: biliary ductal dilation vs periportal edema & poss reflux esophagitis Do you want consulting provider notified?: Yes Primary care physician: Slick Cosby [facility] Course: Discharge Diagnosis: Atypical Chest/Epigastric pain. Acute coronary event was ruled out. Likely secondary to reflux esophagitis. Patient was evaluated by digital computer operator and started on PPI with Protonix 40 mg daily. Patient to follow-up outpatient in 4 weeks for reevaluation and further discussion for possible EGD. History of CAD status post stenting and permanent pacemaker placement. Paroxysmal atrial fibrillation Hypertension Hyperlipidemia Transaminitis, mildly elevated liver enzymes. Improving. Hospital Course: Patient is a very pleasant 77-year-old male with a past medical history of CAD status post stenting and permanent pacemaker placement, paroxysmal atrial fibrillation on anticoagulation with Xarelto, hypertension, hyperlipidemia, prostate cancer with previous diagnosis of adenocarcinoma of prostate with chronic prostatitis on orgovyx and flomax and restless leg syndrome. He presented to the emergency department with a chief complaint of chest pain. Patient reported while lying in bed he had sudden onset pain midsternal chest /epigastric region radiating upwards into his back and right lower jaw. Patient describes this pain as squeezing in nature and reports was accompanied by nausea and shortness of breath. He denies having any headache, lightheadedness, dizziness, palpitations, cough or congestion, vomiting, or experiencing any numbness/tingling/weakness/swelling in his extremities. Patient reports because of his history, he immediately took 4 baby aspirin at home and called EMS for transport to the hospital. Per ER documentation EMS provided patient with 2 sublingual nitroglycerin in which patient reports did result in improvement of his pain. Patient underwent full evaluation in the emergency department. Vital signs upon arrival blood pressure 117/78, heart rate 70, respiratory rate 16, temp 97.8F, SpO2 of 95% on room air. Labs completed and reviewed. CBC showing normocytic anemia with hemoglobin of 10.0. Coagulation profile showing elevated PT of 13.1, INR 1.3, and PTT of 33.0. BMP showing mild prerenal azotemia with BUN of 26 otherwise normal renal function with creatinine of 0.95 and GFR greater of 78. Liver profile showing transaminitis with AST of 98, ALT of 54, alkaline phosphatase of 128. Troponin was negative at less than 0.012. Initial EKG completed at 7:45 AM showing an atrial paced rhythm at 70 bpm and repeat EKG completed at 7:49 AM showing a ventricular paced rhythm at 84 bpm. Chest x-ray completed, lungs appear clear radiology report stating negative for acute cardiopulmonary process. Patient reported taking 4 baby aspirins prior to arrival and received 2 nitro via EMS in which she reported resulted in mild improvement of his symptoms. Discussed patient's history, chief complaint, laboratory analysis, and imaging results in detail with the ED physician. Patient to be admitted to cardiac observation unit with telemetry under our services with consultation to cardiology. Pt reports he follows with resident care manager rn Dr. Frankie Jenkins out of [facility]. Troponins trended overnight all negative at less than 0.0123 draws. Patient had full resolution of previous reported chest pain/squeezing sensation. CT abdomen and pelvis was completed showing postcholecystectomy changes with mild central intrahepatic biliary ductal dilation versus periportal edema and small hiatal hernia with esophageal wall thickening correlating for reflux esophagitis. Co nsult was placed to GI for evaluation. Echocardiogram completed showing a preserved EF of 55% with mild mitral and tricuspid regurgitation. Patient was evaluated by cardiology and cleared for cardiac perspective for discharge home. Repeat morning labs completed showing stable normocytic microchromic anemia with hemoglobin of 9.8. BMP remained unremarkable and liver profile showing continued elevation but slight improvement of liver enzymes with AST decreasing to 91 and ALT to 57 with alkaline phosphatase of 117. Lipid profile was unremarkable. Gastroneurologist evaluated patient recommending patient be placed on PPI, Protonix 40 mg daily and follow up outpatient with our office in 4 weeks. Medically, patient is stable for discharge at this time. Discussed discharge plan with patient, patient to follow up outpatient with PCP in 1-2 days, resident care manager rn in 1-2 weeks, and digital computer operator in 4 weeks. Patient discharged home on Protonix 40 mg daily otherwise no medication changes made this admission. Physical exam: Vital signs reviewed and stable. General: Nontoxic, no distress and appears stated age. Derm: Skin warm and dry, normal coloration for ethnicity. Head: Atraumatic, normocephalic and symmetric. Eyes: EOMs intact, no lid lag, and anicteric sclera Mouth: no lip lesions, mucus membranes moist Cardiovascular: regular rate and rhythm with normal S1S2, systolic murmur, positive posterior tibial pulses bilaterally, and cap refill < 2 seconds. Pacemaker Left anterior chest Lungs: Respirations even, regular, and unlabored on room air. Lungs CTA bilaterally, no rhonchi, no rales, no wheezing, and no accessory muscle usage. Abdominal: soft, nontender to palpation. Patient reports no further tenderness to epigastric region upon palpation this morning. . No guarding, no appreciable organomegaly Ext: ROM intact. No gross muscle atrophy, no edema, no contractures Neuro: Speech clear, face symmetrical and CN II-XII grossly intact with no noted focal neuro deficits Psych: Alert and oriented to person, place, time, and situation. Appropriate and pleasant affect. A total of 34 minutes of time were spent preparing this complex discharge summary. Pt was discharged on 02/16/23 at 3:13 PM. Patient was seen independently by Nurse Practitioner. This document was prepared using [employer] dictation software. Please allow for errors in business area manager while rare they do occur. Patient Condition at Discharge: Stable Plan - Discharge Summary New Discharge Prescriptions: New Pantoprazole [Protonix] 40 mg PO DAILY #30 tab Continue Amiodarone [Cordarone] 200 mg PO HS Tamsulosin [Flomax] 0.4 mg PO HS Relugolix [Orgovyx] 120 mg PO HS Ferrous Sulfate [Slow Release Iron] 140 mg PO Q78H Bisoprolol Fumarate 2.5 mg PO HS Cholecalciferol [Vitamin D3 (25 Mcg = 1000 Iu)] 25 mcg PO DAILY No Action Ezetimibe [Zetia] 10 mg PO HS Nitroglycerin Sl Tabs [Nitrostat] 0.4 mg SUBLINGUAL Q5M PRN #25 tab PRN Reason: Chest Pain Rivaroxaban [Xarelto] 20 mg PO W/SUPPER Probenecid [Benemid] 500 mg PO BID Discharge Medication List Ezetimibe [Zetia] 10 mg PO HS 11/08/13 [History] Nitroglycerin Sl Tabs [Nitrostat] 0.4 mg SUBLINGUAL Q5M PRN #25 tab 11/09/13 [Rx] Rivaroxaban [Xarelto] 20 mg PO W/SUPPER 06/21/18 [History] Probenecid [Benemid] 500 mg PO BID 07/23/18 [History] Amiodarone [Cordarone] 200 mg PO HS 02/15/23 [History] Bisoprolol Fumarate 2.5 mg PO HS 02/15/23 [History] Cholecalciferol [Vitamin D3 (25 Mcg = 1000 Iu)] 25 mcg PO DAILY 02/15/23 [History] Ferrous Sulfate [Slow Release Iron] 140 mg PO Q78H 02/15/23 [History] Relugolix [Orgovyx] 120 mg PO HS 02/15/23 [History] Tamsulosin [Flomax] 0.4 mg PO HS 02/15/23 [History] Pantoprazole [Protonix] 40 mg PO DAILY #30 tab 02/16/23 [Rx] Follow up Appointment(s)/Referral(s): Slick Krishnan MD [Primary Care Provider] - 1-2 days Melissa Pan MD [STAFF PHYSICIAN] - 4 Weeks Dilan Jenkins MD [REFERRING] - 1 Week Patient Instructions/Handouts: Diet for Stomach Ulcers and Gastritis (GEN), Esophagitis (DC) Activity/Diet/Wound Care/Special Instructions: Activity: As tolerated. Take breaks as needed. Diet: Heart healthy and carb consistent diet. Avoid salts, or foods with hidden salts such as canned or boxed foods and frozen dinners. Extra salt makes your heart work harder and traps the fluid in your body for longer. Special Instructions: Take all of your medications as directed and remember to keep all of your doctor's appointments and follow-up as needed. Thank you for allowing us to participate in your care, it was truly a pleasure having you for our patient!!! Discharge Disposition: HOME SELF-CARE
== END 2023-02-16 16:00 | disposition home or self-care (01) ==
LOC: EC 07:44 → SUPCPDRO 07:44 → 6NMEDSUR 10:59
PROVIDERS: ADMIT Family Medicine; ATTEND Family Medicine
DX: R07.89 Other chest pain (principal); R10.13 Epigastric pain; I48.0 Paroxysmal atrial fibrillation; I10 Essential (primary) hypertension; E78.5 Hyperlipidemia, unspecified; R74.01 Elevation of levels of liver transaminase levels; I25.10 Atherosclerotic heart disease of native coronary artery without angina pectoris; Z95.5 Presence of coronary angioplasty implant and graft; M19.90 Unspecified osteoarthritis, unspecified site; K44.9 Diaphragmatic hernia without obstruction or gangrene; N40.0 Benign prostatic hyperplasia without lower urinary tract symptoms; M10.9 Gout, unspecified; Z87.891 Personal history of nicotine dependence; K62.89 Other specified diseases of anus and rectum; E11.9 Type 2 diabetes mellitus without complications; K83.8 Other specified diseases of biliary tract; D64.9 Anemia, unspecified; I08.1 Rheumatic disorders of both mitral and tricuspid valves; G25.81 Restless legs syndrome; Z79.01 Long term (current) use of anticoagulants; Z79.899 Other long term (current) drug therapy; Z88.5 Allergy status to narcotic agent; Z90.49 Acquired absence of other specified parts of digestive tract; Z95.0 Presence of cardiac pacemaker; Z85.46 Personal history of malignant neoplasm of prostate; Z98.890 Other specified postprocedural states; Z80.1 Family history of malignant neoplasm of trachea, bronchus and lung; Z82.49 Family history of ischemic heart disease and other diseases of the circulatory system
CPT/HCPCS: 99285; 36415; 93005; 93306; 80061; 80053 ×2; 83605; 83690; 83735 ×2; 84484; 85025; 85027; 85610; 85730; 71046; 74177; G0378 ×2; Q9967